=== PATIENT | male | born 1945 | race Caucasian/White ===

== ENCOUNTER 2023-09-22 10:33 | Emergency (ER) | payer OTHER, MEDICARE, SELFPAY ==
[2023-09-22 10:53] VITALS: BP 110/57
[2023-09-22 11:02] VITALS: BP 121/67
[2023-09-22 11:57] LABS: % Basophils 0.5 % (0-2); % Eosinophils 0.7 % (0-6); % Immature Granulocytes 0.2 % (0-0.5); % Lymphocytes 36.8 % (20.5-51.1); % Neutrophils 54.8 % (42.2-75.2); Absolute Eosinophils 0.1 10^3/uL (0-0.7); Absolute Lymphocytes 3.1 10^3/uL (1.2-3.4); Absolute Monocytes 0.6 10^3/uL (0.1-0.6); Absolute Neutrophils 4.6 10^3/uL (1.4-6.5); Hematocrit 36.8 % (39.0-52.0); Hemoglobin 12.2 g/dL (13.0-18.0); Mean Corp Hgb Conc. 33.2 g/dL (33.0-37.0); Mean Corpuscular Hgb 32.9 pg (27.0-31.0); Mean Corpuscular Volume 99.2 fL (80.0-94.0); Mean Platelet Volume 11.4 fL (7.4-10.4); Nucleated Red Blood Cells % 0 % (-); Platelet Count 179 10^3/uL (130-400); Red Blood Cell Count 3.71 10^6/uL (4.70-6.10); Red Cell Dist. Width 13.4 % (11.5-14.5); White Blood Cell Count 8.4 10^3/uL (4.8-10.8)
[2023-09-22 12:05] LABS: INR 1.09; PT 13.9 Sec (11.4-14.6)
[2023-09-22 12:06] LABS: APTT 25.2 Sec (23.4-35.0)
[2023-09-22 12:18] LABS: ALT (SGPT) 15 U/L (0-50); AST (SGOT) 24 U/L (17-59); Albumin 4.4 g/dl (3.5-5.0); Alkaline Phosphatase 52 U/L (38-126); Blood Urea Nitrogen 26 mg/dl (9-20); Carbon Dioxide 24 mmol/L (22-30); Chloride 108 mmol/L (98-107); Glucose 111 mg/dl (70-99); Potassium 4.7 mmol/L (3.5-5.1); Sodium 139 mmol/L (135-145); Total Bilirubin 0.6 mg/dl (0.2-1.3); Total Protein 7.5 g/dl (6.3-8.2); eGFR > 60.00
--- NOTE | 2023-09-22 12:24 | ED.GENMED ---
History of Present Illness
General
Chief Complaint: Skin Problem
Source: patient
Time Seen by Provider: 09/22/23 11:36
Travel History
Have you had any contact with someone who has COVID-19?: No
Do you have any symptoms of coronavirus? Fever > 100 degrees, chills, cough, shortness of breath, sore throat, loss of taste or smell, muscle aches, or headache?: No
History of Present Illness
History of Present Illness:
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
separate lacerations around the right eyelid/eyebrow. Patient also sustained multiple abrasions to his bilateral hands and left knee. Patient takes Plavix due to his cardiac history as well as previous CVA in 2018. He denies any loss of
consciousness, headache, vomiting or any other concerns. He is unsure of his last tetanus.
Past History
Past History
ED Past Medical History: CAD, CVA, HTN, Hypercholesterolemia and [place]
ED Past Surgical History: Cardiac (Angioplasty, STent, CABG)
Social History
Tobacco: Former smoker
Alcohol: None
Drug: None
Personal:
Living: with family
Employment: Retired
Family History
Family History: Other
Review of Systems
Review of Systems
All Other Systems: ROS reviewed and negative except as documented in HPI and ROS
Phy Exam
Physical Exam
Physical Exam:
GENERAL: Alert , in no apparent distress
EYE: conjunctiva clear
Head: 2 separate lacerations around the right eyebrow. There is a 2-1/2 cm full-thickness laceration with in the right eyebrow. No active bleeding. Lateral to this there is a superficial 1 cm laceration with no active bleeding
NECK: Supple, no midline tenderness
ENT: mmm.
LUNGS: no acute respiratory distress
NEUROLOGICAL: Alert and oriented
SKIN: Warm and dry, multiple separate small abrasions to the bilateral hands and anterior left knee
MUSCULOSKELETAL: well perfused. Moves all extremities without difficulty
PSYCH: Normal and appropriate interaction.
Scores
Heart Failure Risk
Heart Failure Risk Score: Not Applicable
Heart Score for Chest Pain Patients
STEMI patient?: Not applicable
Withdrawal Assessment of Alcohol
Withdrawal Assessment Completed?: Not applicable
Course
Orders/Labs/Results
Orders:
Orders
09/22/23 11:00
CT Head W/o Iv Contrast Urgent
Comment:
Reason For Exam: fall
09/22/23 11:41
Complete Blood Count/With Diff Urgent
Comprehensive Metabolic Panel Urgent
Protime/PTT Urgent
09/22/23 11:53
Tetanus/Diphth/Acelpertussis [Adacel] 0.5 ml IM .ONCE ONE
Abnormal Lab Results
09/22/23
11:41
RBC 3.71 L 10^6/uL
(4.70-6.10)
Hgb 12.2 L g/dL
(13.0-18.0)
Hct 36.8 L %
(39.0-52.0)
MCV 99.2 H fL
(80.0-94.0)
MCH 32.9 H pg
(27.0-31.0)
MPV 11.4 H fL
(7.4-10.4)
Chloride 108 H mmol/L
(98-107)
BUN 26 H mg/dl
(9-20)
Glucose 111 H mg/dl
(70-99)
09/22/23 11:41
09/22/23 11:41
Vital Signs
Initial and Last Documented VS:
Initial Vital Signs
Temp Pulse Resp BP Pulse Ox
98.1 F 59 18 110/57 97
09/22/23 10:53 09/22/23 10:53 09/22/23 10:53 09/22/23 10:53 09/22/23 10:53
Last Documented Vital Signs
Temp Pulse Resp BP Pulse Ox
98.1 F 76 24 121/67 98
09/22/23 10:53 09/22/23 11:02 09/22/23 11:02 09/22/23 11:02 09/22/23 11:02
Procedures
Laceration Closure
Right Eye brow:
Status of Wound: clean
Size of Wound in cm: 2.5
Description of Wound Edges: sharp and surrounded by abrasion
Preparation: cleaned with saline
Anesthesia: 1% Lidocaine with epi
Revision/Debridement: routine- no revision
Type of Closure: layered closure
Skin Closure Material: 6-0 nylon (13) and other (6-0 plain gut)
Number of sutures: 8
Right Lateral Eye brow:
Status of Wound: clean
Size of Wound in cm: 1
Description of Wound Edges: sharp
Preparation: cleaned with saline
Anesthesia: 1% Lidocaine with epi
Type of Closure: single layer closure
Skin Closure Material: 6-0 nylon
Number of sutures: 5
MDM/Problems Addressed
Differential Diagnosis Includes:
Accidental trip and fall, simple lacerations/abrasions intracranial bleeding, calvarial fracture
MDM/Problems Addressed:
77-year-old male presenting to the emergency department for evaluation status post accidental trip and fall. Lacerations as noted above and repaired as above. CT of the head was ordered from triage due to patient's head injury combined with his
anticoagulated status. Suture removal in 5 to 7 days. Patient was advised on wound care. He is otherwise stable for discharge home and aware of return precautions.
*Radiology
Radiology exam reviewed: radiology read reviewed (No intracranial pathology)
*Pulse Oximetry
Patient hypoxic: no
*Critical Care Note
Total Time (30-74mins, 75-104mins- exclusive of procedures): Not Applicable
ED Attending Note
-
Portions of this chart may have been created with voice recognition software.� Occasional wrong word or��sound alike� substitutions may have occurred due to the inherent limitations of voice recognition software.
Discharge Plan
Departure
Patient Disposition: Home (Routine Discharge)
Date of Disposition: 09/22/23
Time of Disposition: 12:24
Patient with high blood pressure during this ER visit?: No
Discharge Problem:
Laceration of forehead, Accidental fall
Instructions: Laceration Repair With Stitches (DC)
Prescriptions:
No Action
aspirin 81 MG tablet,delayed release (DR/EC)
81 mg PO DAILY
clopidogrel 75 MG tablet
75 mg PO DAILY
sertraline 50 MG tablet
50 mg PO QPM
metoprolol succinate 50 MG tablet extended release 24 hr
50 mg PO BID
omega-3 fatty acids-fish oil 1 EACH capsule
2 ea PO BID
rosuvastatin [Crestor] 40 MG tablet
40 mg PO QPM
cetirizine 10 MG tablet
10 mg PO DAILY
multivitamin with folic acid [Tab-A-Tra] 1 TABLET tablet
1 tab PO DAILY
ranolazine 1,000 MG tablet extended release 12 hr
1,000 mg PO BID Qty: 60 0RF
Rx Instructions:
Increase Ranexa (ranolazine) to 1000 mg (two 500 mg capsules) twice a day
Entresto 49-51 mg Tablet
1 tab PO BID
Activity Restrictions/Additional Instructions:
Suture removal in 5-7 days
Interventions
Interventions:
*Risk Screen - Suicide Last Done: 09/22/23 10:53
*General Assessment Last Done: 09/22/23 10:53
*Neglect/Abuse Screening Last Done: 09/22/23 10:53
ED-Skin Assessment Last Done: 09/22/23 12:07
[2023-09-22] MEDS: ADACEL 0.5 ML IM (12:32)
== END 2023-09-22 13:04 | disposition home or self-care (01) ==
LOC: EMR 10:33
PROVIDERS: Physician Assistant Medical; EMERGENCY PHYSICIAN Emergency Medicine; FAMILY PHYSICIAN Internal Medicine
DX: S01.81XA Laceration without foreign body of other part of head, initial encounter (principal); S01.111A Laceration without foreign body of right eyelid and periocular area, initial encounter; W01.0XXA Fall on same level from slipping, tripping and stumbling without subsequent striking against object, initial encounter; Z87.891 Personal history of nicotine dependence; Z23 Encounter for immunization; Z79.01 Long term (current) use of anticoagulants; Z86.73 Personal history of transient ischemic attack (TIA), and cerebral infarction without residual deficits
CPT/HCPCS: 99284; 12051; 90471; 12011; 70450; 80053; 85025; 85610; 85730; 90715

== ENCOUNTER 2023-10-17 11:45 | Emergency (ER) | payer MEDICARE, OTHER, SELFPAY ==
[2023-10-17 11:47] VITALS: BP 116/83
--- NOTE | 2023-10-17 12:22 | ED.GENMED ---
History of Present Illness
<Susan Peña PA-C - Last Filed: 10/17/23 23:15>
General
Chief Complaint: Musculo-Skeletal Complaint
Source: patient
Exam Limitations: none
Time Seen by Provider: 10/17/23 12:03
Nursing documentation reviewed up to this point in time: agreed with
Travel History
Have you had any contact with someone who has COVID-19?: No
Do you have any symptoms of coronavirus? Fever > 100 degrees, chills, cough, shortness of breath, sore throat, loss of taste or smell, muscle aches, or headache?: No
History of Present Illness
History of Present Illness:
Patient is a 77-year-old male presenting following trip and fall yesterday while at the gym. He states he tripped over one of the weight machines landing on his knees. He did not hit his head or lose consciousness. Someone assisted him up.
Patient states that he has been able to bear weight on knee since yesterday but noticed some increased pain this morning while trying to get out of bed. He states pain is worse with flexion of his knee. He denies any numbness/tingling in left
lower leg.
Patient denies any other injury sustained in the fall. No neck pain, back pain, headache
Past History
<Susan Peña PA-C - Last Filed: 10/17/23 23:15>
Past History
ED Past Medical History: CAD, CVA, HTN, Hypercholesterolemia and [place]
ED Past Surgical History: Cardiac (Angioplasty, STent, CABG)
Social History
Tobacco: Former smoker
Alcohol: None
Drug: None
Personal:
Living: with family
Employment: Retired
Family History
Family History: Other
Phy Exam
<Susan Peña PA-C - Last Filed: 10/17/23 23:15>
Physical Exam
Physical Exam:
General: In no apparent distress, non-toxic
Vitals: Vital signs stable, afebrile
HEENT: Atraumatic, normocephalic; pupils equal round reactive to light bilaterally, protecting airway
Neck: appears supple, no cervical spine tenderness or midline spinal tenderness
CV: No evidence of cyanosis
Resp: No accessory muscle use
Abd: Non-distended
Extremities: No obvious deformity or swelling of left knee, some pain along lateral joint line of left knee with active and passive knee flexion, no bony tenderness; no pain in left hip or left ankle, full range of motion in left hip and left ankle;
left lower extremity neurovascular intact
Neuro: alert and oriented x 3; grossly intact
Psych: Normal affect
Skin: Intact, small ecchymosis of left knee and healing wound
Course
<Susan Peña PA-C - Last Filed: 10/17/23 23:15>
Orders/Labs/Results
Orders:
Orders
10/17/23 12:18
Knee, Left 4 or More Views [CR Knee - Left 4 Or More View*] Urgent
Comment:
Reason For Exam: fall, left knee pain
Vital Signs
Initial and Last Documented VS:
Initial Vital Signs
Temp Pulse Resp BP Pulse Ox
97.3 F 60 18 116/83 100
10/17/23 11:47 10/17/23 11:47 10/17/23 11:47 10/17/23 11:47 10/17/23 11:47
Last Documented Vital Signs
Temp Pulse Resp BP Pulse Ox
97.3 F 58 18 98/53 100
10/17/23 11:47 10/17/23 15:07 10/17/23 11:47 10/17/23 15:07 10/17/23 15:07
<Lokesh Perez DO - Last Filed: 10/17/23 15:33>
Orders/Labs/Results
Orders:
Orders
10/17/23 12:18
Knee, Left 4 or More Views [CR Knee - Left 4 Or More View*] Urgent
Comment:
Reason For Exam: fall, left knee pain
Vital Signs
Initial and Last Documented VS:
Initial Vital Signs
Temp Pulse Resp BP Pulse Ox
97.3 F 60 18 116/83 100
10/17/23 11:47 10/17/23 11:47 10/17/23 11:47 10/17/23 11:47 10/17/23 11:47
Last Documented Vital Signs
Temp Pulse Resp BP Pulse Ox
97.3 F 58 18 98/53 100
10/17/23 11:47 10/17/23 15:07 10/17/23 11:47 10/17/23 15:07 10/17/23 15:07
<Susan Peña PA-C - Last Filed: 10/17/23 23:15>
MDM/Problems Addressed
Differential Diagnosis Includes:
Knee sprain, knee contusion, doubt knee fracture or dislocation, ruptured Dean's cyst
MDM/Problems Addressed:
Patient is a 77-year-old male presenting for evaluation of left knee injury sustained during trip and fall at the gym yesterday. Came down landing on his left knee. He is having pain with flexion of left knee, but is able to weight-bear. No other
injury sustained during fall. Vital signs are stable. Physical exam as documented above. He is no obvious swelling or deformity of left knee but does have some pain along lateral joint line with flexion of left knee. He has no pain in left ankle
or left hip with full range of motion. No suspicious for left knee sprain. Will check x-ray of left knee. Anticipate discharge. Patient declines any analgesia at this time.
Xray shows no acute fracture of dislocation. Suspect likely knee sprain. Patient declines knee immobilizer. Will wrap with ADAN bandage. Patient without difficulty ambulating. Return precautions discussed. Orthopedic referral provided if symptoms
persist/worsen. Patient expresses understanding.
Chronic conditions affecting care:
Hypertension
Acute Exacerbation and/or Progression of Chronic Illness:
N/A
<Susan Peña PA-C - Last Filed: 10/17/23 23:15>
*Radiology
Radiology exam reviewed: preliminary read by ED provider and radiology read reviewed
*Pulse Oximetry
Patient hypoxic: no
*EKG
Interpreted by ED Provider?: NA
*Trailer Driver Interpretation
Rate: Trailer Driver- N/A
*Critical Care Note
Total Time (30-74mins, 75-104mins- exclusive of procedures): Not Applicable
ED Attending Note
<Susan Peña PA-C - Last Filed: 10/17/23 23:15>
-
Portions of this chart may have been created with voice recognition software.� Occasional wrong word or��sound alike� substitutions may have occurred due to the inherent limitations of voice recognition software.
<Lokesh Perez, DO - Last Filed: 10/17/23 15:33>
ED Attending Note
Patient seen and examined by attending physician: Yes
I performed a history and physical exam of patient and discussed management with resident, I reviewed resident's note and agree with documented findings and plan of care.: Yes
ED Attending Note:
I have reviewed and agree with history and treatment plan by Susan Peña. My exam revealed 77-year-old male with full range of motion in left hip and ankle, pain with knee flexion. Normal pulses. Stable for discharge. Follow-up with primary
care
Discharge Plan
Departure
Patient Disposition: Home (Routine Discharge)
Date of Disposition: 10/17/23
Time of Disposition: 14:53
Patient with high blood pressure during this ER visit?: No
Condition: Good
Covid-19: Not Applicable
Discharge Problem:
Injury of knee, left
Instructions: Knee Sprain (DC)
Prescriptions:
No Action
aspirin 81 MG tablet,delayed release (DR/EC)
81 mg PO DAILY
clopidogrel 75 MG tablet
75 mg PO DAILY
sertraline 50 MG tablet
50 mg PO QPM
metoprolol succinate 50 MG tablet extended release 24 hr
50 mg PO BID
omega-3 fatty acids-fish oil 1 EACH capsule
2 ea PO BID
rosuvastatin [Crestor] 40 MG tablet
40 mg PO QPM
cetirizine 10 MG tablet
10 mg PO DAILY
multivitamin with folic acid [Tab-A-Tra] 1 TABLET tablet
1 tab PO DAILY
ranolazine 1,000 MG tablet extended release 12 hr
1,000 mg PO BID Qty: 60 0RF
Rx Instructions:
Increase Ranexa (ranolazine) to 1000 mg (two 500 mg capsules) twice a day
Entresto 49-51 mg Tablet
1 tab PO BID
Referrals:
Maryuri Santana MD [Family Provider] -
Iván Samuel MD [Active] - As needed
Activity Restrictions/Additional Instructions:
- Return to the emergency department any severe pain in the left knee, severe swelling in left knee, numbness or tingling in left lower leg, inability to ambulate, worsening in current symptoms, or any other concerns
-You can take Tylenol as needed for discomfort. Apply ice, wrap knee and Adan bandage.
-You should follow-up with orthopedics for further evaluation/management if symptoms persist. Further imaging may be required if symptoms persist/worsen
Interventions
Interventions:
*Risk Screen - Suicide Last Done: 10/17/23 15:08
*General Assessment Last Done: 10/17/23 15:08
*Neglect/Abuse Screening Last Done: 10/17/23 15:08
ED- Fall Risk Assessment Last Done: 10/17/23 15:08
*ED COVID-19 Vaccine History Last Done: 10/17/23 15:08
*Nursing Disposition Last Done: 10/17/23 15:08
ED-Musculoskeletal Assessment Last Done: 10/17/23 13:00
Discharge Date and Time
Discharge Date/Time: 10/17/23 15:08
[2023-10-17 15:07] VITALS: BP 98/53
== END 2023-10-17 15:08 | disposition home or self-care (01) ==
LOC: EMR 11:45
PROVIDERS: EMERGENCY PHYSICIAN Emergency Medicine; FAMILY PHYSICIAN Internal Medicine
DX: S80.912A Unspecified superficial injury of left knee, initial encounter (principal); W01.0XXA Fall on same level from slipping, tripping and stumbling without subsequent striking against object, initial encounter; I10 Essential (primary) hypertension; Z87.891 Personal history of nicotine dependence
CPT/HCPCS: 99283; 73564

== ENCOUNTER 2024-11-20 06:26 | Day surgery (SDC) | payer MEDICARE, OTHER, SELFPAY | END 2024-11-20 12:59 | disposition home or self-care (01) | LOC: GI 06:26 | PROVIDERS: ATTENDING PHYSICIAN Internal Medicine Gastroenterology | DX: Z12.11 Encounter for screening for malignant neoplasm of colon (principal); K64.8 Other hemorrhoids; K57.30 Diverticulosis of large intestine without perforation or abscess without bleeding; K31.89 Other diseases of stomach and duodenum; K57.10 Diverticulosis of small intestine without perforation or abscess without bleeding; R12 Heartburn; D12.2 Benign neoplasm of ascending colon; D12.8 Benign neoplasm of rectum; K29.50 Unspecified chronic gastritis without bleeding | CPT/HCPCS: 45380; 43239; 88305; 88342 ==

== ENCOUNTER 2025-05-09 15:12 | Inpatient (IN) | payer MEDICARE, OTHER, SELFPAY ==
[2025-05-07 20:02] VITALS: BP 109/54
[2025-05-07 20:06] VITALS: BP 109/54
[2025-05-07 20:06] LABS: Glucose - Point of Care 88 mg/dl (70-99)
--- NOTE | 2025-05-07 20:07 | ED.CVA ---
History of Present Illness
General
Chief Complaint: CVA/TIA Symptoms
Source: spouse and ambulance crew
Exam Limitations: non verbal-adult
Time Seen by Provider: 05/07/25 19:59
Nursing documentation reviewed up to this point in time: agreed with
Onset of Stroke Symptoms
Onset of symptoms known: Yes
Date of onset of symptoms: 05/07/25
Time pt last seen normal is known: Yes
Date last time pt seen normal: 05/07/25
Time last time pt seen normal: 14:00
History of Present Illness
History of Present Illness:
79-year-old male prehospital stroke alert last seen normal at 2 PM when he went to take a nap woke up around 8 PM aphasic with right sided neglect EMS called, prehospital stroke alert was alerted, of note patient has baseline no neurologic deficit
per EMS, patient had recent eyelid surgery has somewhat fresh looking stitches--blood pressure was marginally low per EMS
9 PM update discussed with at bedside she confirmed last seen normal at 2 PM today also looks like his aspirin and Plavix have been on held since 04/28 when he had eyelid surgery
Past History
Past History
ED Past Medical History: CAD, CVA, HTN, Hypercholesterolemia and [place]
ED Past Surgical History: Cardiac (Angioplasty, STent, CABG)
Social History
Tobacco: Former smoker
Alcohol: None
Drug: None
Personal:
Living: with family
Employment: Retired
Family History
Family History: Other
Phy Exam
Physical Exam
Physical Exam:
Physical Exam
General: Aphasic male looking to the left right sided neglect
Neck: No tongue bite sutures in the eyelids
Heart: Regular
Lungs: no acute respiratory distress. clear bilaterally
Abdomen: Soft
Neuro: Follows commands right sided neglect aphasic
Skin: no rash
Psychiatric: Unable to fully assess
Extremities:
Scores
NIH Stroke Score
Level of Consciousness: 0 - Alert
LOC Questions: 2-Neither correct
LOC Commands: 1-Performs one correctly
Best Horizontal Gaze: 2-Total gaze palsy
Visual Paulino: 2=Full hemianopia
Facial Palsy: 0=Normal, symmetrical
Motor - Right Arm: 1=Drift < 10 seconds
Motor - Left Arm: 0=No drift 10 seconds
Motor - Right Le-Drift < 5 seconds
Motor - Left Le-No drift 5 seconds
Limb Ataxia: 1-Present in one limb
Sensation: 1-Mild loss
Best Language: 3-Mute/global aphasia
Dysarthria: 2-Severe slurring
Extinction and Inattention: 1-Sensory inattention
NIH Total Score:: 17
Course
Orders/Labs/Results
Orders:
Orders
05/07/25 20:00
Electrocardiogram (*1) Stat
Reason for Study: Other
Other Reason for Exam: neuro symptoms
CT BRAIN PERF STROKE ALERT Urgent
Comment:
Reason For Exam: aphaisa
CT HEAD STROKE ALERT W/o Cont Urgent
Comment:
Reason For Exam: apahias
CT HEAD/NECK ANG STROKE ALERT Urgent
Comment:
Reason For Exam: aphasia
Bedside Glucose- Treatment ONCE
Cardiac Monitoring- Treatment ONCE
EKG- Treatment ONCE
05/07/25 20:31
Complete Blood Count/With Diff Urgent
Comprehensive Metabolic Panel Urgent
Erythrocyte Sed Rate Urgent
PTT Urgent
Prothrombin Time Urgent
05/07/25 21:36
Aspirin 300 mg RECTAL NOW STA
05/07/25 21:37
NSS 1000mL Bolus WIDE OPEN 0.9% Sodium Chloride 1000 ml [Nss] 1,000 ml IV BOLUS
Abnormal Lab Results
05/07/25
20:31
RBC 3.47 L 10^6/uL
(4.70-6.10)
Hgb 11.3 L g/dL
(13.0-18.0)
Hct 34.3 L %
(39.0-52.0)
MCV 98.8 H fL
(80.0-94.0)
MCH 32.6 H pg
(27.0-31.0)
MCHC 32.9 L g/dL
(33.0-37.0)
MPV 11.4 H fL
(7.4-10.4)
Potassium 5.2 H mmol/L
(3.5-5.1)
Chloride 108 H mmol/L
(98-107)
BUN 34 H mg/dl
(9-20)
Glucose 104 H mg/dl
(70-99)
Alkaline Phosphatase 33 L U/L
(38-126)
05/07/25 20:31
05/07/25 20:31
Vital Signs
Initial and Last Documented VS:
Initial Vital Signs
Pulse Resp BP
77 27 109/54
05/07/25 20:02 05/07/25 20:02 05/07/25 20:02
Last Documented Vital Signs
Temp Pulse Resp BP Pulse Ox
97.8 F 60 22 99/59 99
05/07/25 20:06 05/07/25 21:30 05/07/25 21:30 05/07/25 21:00 05/07/25 21:30
MDM/Problems Addressed
Differential Diagnosis Includes:
Intracerebral hemorrhage, ischemic stroke embolic stroke seizure with Alec's paralysis
MDM/Problems Addressed:
Aphasia right sided
*Pulse Oximetry
SaO2: 99
Oxygen Mode of Delivery: Room air
Patient hypoxic: no
*EKG
Interpreted by ED Provider?: Yes
Interpretation: abnormal
Comparison EKG: no comparison EKG present
Heart Rate: 78
Rate: normal
Rhythm: ventricular paced
Ischemia: non-specific ST changes
*Hand Mica Plate Layer Interpretation
Rate: normal
Interpretation: normal
Heart Rate: 78
Rhythm: ventricular paced
*Critical Care Note
Total Time (30-74mins, 75-104mins- exclusive of procedures): 30
Update Note
Update Note:
8:25 PM message from radiology noncontrast CT nothing acute
CT perfusion report noted CT angiogram completed awaiting results will consult urgently with [facility] remotely
8:45 PM reviewed with stroke fellow at [facility], case reviewed, she will review images, in the meantime I did review CT angio report here
In conclusion, does not appear to be TNK candidate due to timing greater than 4-1/2 hours, no large vessel occlusion, therefore not IAT candidate
935, reviewed again with the stroke fellow, she recommends aspirin not Plavix at this point and some fluids attempt to normalize his blood pressure as tolerated
ED Attending Note
-
Portions of this chart may have been created with voice recognition software.� Occasional wrong word or��sound alike� substitutions may have occurred due to the inherent limitations of voice recognition software.
Discharge Plan
Departure
Patient Disposition: Admit
Date of Disposition: 05/07/25
Time of Disposition: 21:05
Admit to: Telemetry
Presentation/result/management discussed w/ accepting MD/DO: Hospitalist
Patient with high blood pressure during this ER visit?: No
Condition: Fair
Covid-19: Not Applicable
Discharge Problem:
Acute CVA (cerebrovascular accident)
Prescriptions:
No Action
aspirin 81 MG tablet,delayed release (DR/EC)
81 mg PO DAILY
clopidogrel 75 MG tablet
75 mg PO DAILY
sertraline 50 MG tablet
50 mg PO QPM
metoprolol succinate 50 MG tablet extended release 24 hr
75 mg PO BID
rosuvastatin [Crestor] 40 MG tablet
40 mg PO QPM
cetirizine 10 MG tablet
10 mg PO DAILY
multivitamin with folic acid [Tab-A-Tra] 1 TABLET tablet
1 tab PO DAILY
ranolazine 1,000 MG tablet extended release 12 hr
1,000 mg PO BID Qty: 60 0RF
Rx Instructions:
Increase Ranexa (ranolazine) to 1000 mg (two 500 mg capsules) twice a day
sacubitril-valsartan [Entresto] 49-51 mg Tablet
1 tab PO BID
pantoprazole [Protonix] 40 mg Tablet,Delayed Release (Dr/Ec)
40 mg PO DAILY
erythromycin 5 mg/gram (0.5 %) Ointment
1 applic BOTH EYES BID
Rx Instructions:
FOR 10 DAYS AFTER EYE LID SURGERY
ezetimibe [Zetia] 10 mg Tablet
10 mg PO DAILY
omega-3 acid ethyl esters 1 gram capsule
2 g PO BID
fenofibrate nanocrystallized [Tricor] 145 mg Tablet
145 mg PO DAILY
Interventions
Interventions:
*Risk Screen - Suicide Last Done: 05/07/25 20:11
*General Assessment Last Done: 05/07/25 20:11
*Neglect/Abuse Screening Last Done: 05/07/25 20:11
*ED- Fall Risk Assessment Last Done: 05/07/25 20:11
*ED COVID-19 Vaccine History Last Done: 05/07/25 20:11
*ED Influenza Vaccine History Last Done: 05/07/25 20:11
ED- Pulmonary Assessment Last Done: 05/07/25 20:12
ED- Neurological Assessment Last Done: 05/07/25 20:12
ED- Cardiac Assessment Last Done: 05/07/25 20:12
Discharge Date and Time
Print Language: LATVIAN
[2025-05-07 20:08] VITALS: BMI 28.6
--- NOTE | 2025-05-07 20:13 | PHANOTE ---
Addendum entered by Enma Smith 05/07/25 21:27:
patient spouse arrived but bought her medication list with her and an old list of his, no ecw, patient non verbal at this time. no pharmacy fills for Entresto and list has 25mg?
Original Note:
med red note- called spouse to get medication list, patient came with medication list but wrong name on paperwork
[2025-05-07 20:35] VITALS: BP 99/53
[2025-05-07 20:38] LABS: Hematocrit 34.3 % (39.0-52.0); Hemoglobin 11.3 g/dL (13.0-18.0); Mean Corp Hgb Conc. 32.9 g/dL (33.0-37.0); Mean Corpuscular Volume 98.8 fL (80.0-94.0); Nucleated Red Blood Cells % 0 % (-); Platelet Count 190 10^3/uL (130-400); Red Cell Dist. Width 12.9 % (11.5-14.5)
[2025-05-07 20:47] LABS: INR 1.08; PT 14.5 Sec (11.4-14.6)
[2025-05-07 20:48] LABS: APTT 24.6 Sec (23.4-35.0)
[2025-05-07 20:59] LABS: ALT (SGPT) 15 U/L (0-50); AST (SGOT) 24 U/L (17-59); Albumin 4.2 g/dl (3.5-5.0); Alkaline Phosphatase 33 U/L (38-126); Blood Urea Nitrogen 34 mg/dl (9-20); Calcium 9.2 mg/dl (8.4-10.2); Carbon Dioxide 24 mmol/L (22-30); Chloride 108 mmol/L (98-107); Estimated Creatinine Clearance 61 ml/min; Glucose 104 mg/dl (70-99); Potassium 5.2 mmol/L (3.5-5.1); Sodium 138 mmol/L (135-145); Total Protein 7.1 g/dl (6.3-8.2); eGFR > 60.00
[2025-05-07 21:00] VITALS: BP 99/59
--- NOTE | 2025-05-07 21:06 | HPS.HSE ---
Family Physician
-
Family Physician:
Chief Complaint
-
aphasia and right sided neglect
History of Present Illness
Patient is a 79-year-old male with past medical history significant for hypertension, hyperlipidemia, CAD and ischemic cardiomyopathy who presented to [facility] ED for evaluation aphasia and right sided neglect. Patient spouse at bedside who assisted
with HPI. Patient laid down for nap around 1400 and was at baseline patients spouse states that she also took a nap and when she woke she went to see if patient was hungry and when she questioned him she learned he was unable to answer questions,
had garbled speech and kept repeating 'I do not know.' She reports calling [id number] who instructed her to call 911. Patient had recent hooded eyelid repair done last 05/01/2025. She is unaware if patient has been taking his precribed
medications or not.
Medical History
Past Medical History
Past Medical History: Reports Other
Additional Past Medical History:
hypertension
hyperlipidemia
CAD
ischemic cardiomyopathy
Hx NSTEMI
Hx embolic CVA
Past Surgical History: Reports Other
Additional Past Surgical History:
CABG
hooded eyelid repair
Social History
Tobacco: Former Smoker
Personal:
Living: With Family
Family History
Family History: Unable to Obtain
Allergies / Home Medications
Allergies reflects when Allergies were last updated in [facility].
Home Medications with original date entered in [facility]
Allergy/Medication List:
Allergies
Allergy/AdvReac Type Severity Reaction Status Date / Time
No Known Allergies Allergy Verified 09/22/23 10:53
Home Medications
aspirin 81 mg tablet,delayed release 81 mg PO DAILY Blood clot prevention/tx 06/06/17
clopidogrel 75 mg tablet 75 mg PO DAILY Blood clot prevention/tx 06/06/17
sertraline 50 mg tablet 50 mg PO QPM Mental Health/Anxiety 06/06/17
cetirizine 10 mg tablet 10 mg PO DAILY Allergies 06/10/20
metoprolol succinate 50 mg tablet,extended release 24 hr 75 mg PO BID Heart Failure 06/10/20
multivitamin with folic acid 400 mcg tablet (Tab-A-Tra) 1 tab PO DAILY Supplement 06/10/20
rosuvastatin 40 mg tablet (Crestor) 40 mg PO QPM High cholesterol 06/10/20
ranolazine 1,000 mg tablet,extended release,12 hr 1,000 mg PO BID ##60 06/11/20
sacubitril 49 mg-valsartan 51 mg tablet (Entresto) 1 tab PO BID 09/22/23
erythromycin 5 mg/gram (0.5 %) eye ointment 1 applic BOTH EYES BID 05/07/25
ezetimibe 10 mg tablet (Zetia) 10 mg PO DAILY 05/07/25
fenofibrate nanocrystallized 145 mg tablet (Tricor) 145 mg PO DAILY 05/07/25
omega-3 acid ethyl esters 1 gram capsule 2 g PO BID 05/07/25
pantoprazole 40 mg tablet,delayed release (Protonix) 40 mg PO DAILY 05/07/25
Review of Systems
-
Unable to obtain full review of systems at this time due to: Other (unable to obtain complete history )
History Source: Patient and Family
Neurological: Reports Other (right sided neglect, aphasic )
Physical Exam
Vital Signs
Vital Signs
Temp Pulse Resp BP Pulse Ox
97.8 F 74 16 109/54 99
05/07/25 20:06 05/07/25 20:06 05/07/25 20:06 05/07/25 20:06 05/07/25 21:05
Physical Exam
General: Well Developed, Well Nourished, No Apparent Distress, Comfortable and Slurred Speech
HEENT: NormoCephalic, Moist mucous membranes, Nose Appears Normal, Ears Appear Normal and Other (B/L eyelids healing from surgery last 05/01/2025)
Respiratory: Clear and Non Labored Respirations
Cardiac: S1/S2 and Regular Rhythm; No Murmur, Rub or Gallop
GI: Soft, Non Tender, Non Distended and Normal Bowel Sounds
Musculoskeletal: No Clubbing, No Cyanosis and No Edema
Skin: Warm and IV/Catheter Site
Neuro: Awake, Alert, Slurred Speech, Facial Droop (right sided ) and Other (aphasic )
Psych: Calm
Laboratory Results
-
05/07/25 20:
05/07/25
Laboratory Results
PT 14.5 Sec (11.4-14.6) 05/07/25
INR 1.08 05/07/25
APTT 24.6 Sec (23.4-35.0) 05/07/25
Total Bilirubin 0.8 mg/dl (0.2-1.3) 05/07/25:
AST 24 U/L (17-59) 05/07/25:
ALT 15 U/L (0-50) 05/07/25:
Alkaline Phosphatase 33 U/L (38-126) L 05/07/25
Data Reviewed
-
CT Scan: Report Reviewed by me (see reports )
Medical Tests (Nuc Med, Echo, EKG etc): Report Reviewed by me (EKG: AV dual-paced rhythm WITH FREQUENT ventricular-paced complexes)
Lab Data: Labs Reviewed by me (hgb 11.3, hct 34.3, K+ 5.2)
Impression/Plan
-
IMPRESSION/PLAN:
#aphasic and right sided neglect
#Hx embolic CVA
Head/Neck CTA: No evidence for hemodynamically significant stenosis of the common carotid arteries, carotid bulbs, or proximal internal carotid arteries bilaterally.
No evidence for large vessel occlusion within the middle cerebral arteries bilaterally. Subtle slightly diminished distal branches in the left anterior frontal lobe when compared to the right,
corresponding to the region of delayed perfusion on CT brain perfusion examination.
For further evaluation, consideration for MRI of the brain.
No significant narrowing involving the vertebral or basilar arteries. No significant narrowing of the posterior cerebral arteries.
Percent stenosis is calculated using NASCET criteria.
If the patient has emphysema, patient should be assessed for an annual low dose lung cancer CT program, as pulmonary emphysema is an independent risk factor for lung cancer.
Head CT: No evidence of acute intracranial abnormality.
ASPECT score: 10
Brain perf stroke alert: By CT brain perfusion, ischemic penumbra is present in the left frontal lobe and in the region of the insula. This distribution could result in clinical symptoms of aphasia. By CT brain
perfusion, no evidence for core infarction.
EKG: AV dual-paced rhythm WITH FREQUENT ventricular-paced complexes
- Admit to telemetry
- Consult Neurology
- NIH and neuro checks per protocol
- lipids
#hypertension
- continue metoprolol
#hyperlipidemia
- hold ezetimibe and fenofibrate
#CAD
- continue aspirin
#ischemic cardiomyopathy
#Hx NSTEMI
- daily weights
- I & Os
- continue aspirin
- hold ranolazine
Code status: full code
DVT prophylaxis: SCDs
[2025-05-07] MEDS: NSS 1000 IV (21:52)
[2025-05-07] MEDS: ASPIRIN 300 MG RECTAL (21:52)
--- NOTE | 2025-05-07 21:55 | W.PN.UPDATE ---
Update Note
Progress Note Update
Patient seen in conjunction with PRESS AND BLOW MACHINE TENDER. I agree with the findings physical. I concur with assessment and plan unless stated otherwise.
This is a 79-year-old with past medical history significant for CAD status post TX, prior history of cardioembolic stroke with residual visual field deficit, hypertension, hyperlipidemia, ischemic cardiomyopathy presenting to the emergency
department with acute episode of aphasia.
Patient apparently arose in usual state of health and was normal until around 2 PM when he went to take a nap. When he woke up he presented with aphasia. He also had some right-sided hemineglect according to the EMS that saw him first. Patient
had a recent eyelid surgery bilaterally and dual antiplatelet therapy with on hold. No particular facial asymmetry noted. Patient unable to provide much history due to his severe aphasia. Spouse who lives with him also cannot provide any
additional history. Apparently had this last stroke about 2 years ago.
In the emergency department his blood pressure was in the 90s systolic, temperature was 98,. CBC was unremarkable electrolytes BUN/creatinine were stable. Noncontrast CT was nonacute. CT brain perfusion with ischemic penumbra is present in the
left frontal lobe and in the region of the insula. This distribution could result in clinical symptoms of aphasia. By CT brain perfusion, no evidence for core infarction CT angio showed no evidence for hemodynamically significant stenosis of the
common carotid arteries, carotid bulbs, or proximal internal carotid arteries bilaterally.
NIHSS = 4, severe aphasia.
Assessment and plan
CVA -patient with new onset aphasia likely secondary to left-sided CVA. No focal stroke on CT scan blood penumbra with ischemia from likely small vessel disease. No large vessel occlusion on CT angio. Neurology evaluated. No TNK.
- Admit to telemetry for stroke evaluation
- N.p.o. for now, swallow evaluation
- Aspirin 300 mg loading ND
- Keep SBP greater than 120, with IV fluid, hold antihypertensives for now
- Will continue his aspirin daily, continue Plavix
- Continue metoprolol with hold parameters
- Hold Entresto holding
- MRI in a.m., echo
- Neurology consultation
- Check A1c and lipid panel
- DVT prophylaxis with Lovenox subcu
- CODE STATUS�full code
[2025-05-07 22:00] VITALS: BP 96/59
[2025-05-07 23:00] VITALS: BP 102/55
[2025-05-08] VITALS (8 sets, daily range): BP systolic 106–134; BP diastolic 53–69; O2SAT 99
[2025-05-08 02:47] LABS: Troponin I 0.048 ng/ml
[2025-05-08 03:44] LABS: Urine Character Clear (Clear)
[2025-05-08 03:50] LABS: Urine Red Blood Cell 0-2 /HPF (0-2); Urine Squamous Cell 0-2 /LPF (Few); Urine White Cell 0-2 /HPF (0-5)
[2025-05-08 08:37] LABS: HDL Cholesterol 48 mg/dl; LDL Cholesterol, Calculated 64 mg/dl; Very Low Density Lipoprotein 26 mg/dl (0-30)
[2025-05-08 08:42] LABS: Glycohemoglobin (HgbA1c) 5.7 % (4.0-5.6)
--- NOTE | 2025-05-08 08:49 | W.PN.HOSP.TC ---
Addendum entered and electronically signed by Sanford Fernandez MD 05/09/25 16:07:
I personally reviewed and evaluated this patient with the resident. I agree with above unless if otherwise stated below.
I personally reviewed labs and imaging financial consultant notes case management note
Addendum entered and electronically signed by Sanford Fernandez MD 05/08/25 13:12:
Acute CVA with new onset aphasia
MRI brain
2D echocardiogram
Telemetry
PT OT speech
DAPT, LDL less than 64 continue home Crestor Zetia per neurology
Elevated troponin likely related to acute CVA, trend to peak
Will check 2D echocardiogram to assess for wall motion abnormality and EF
Hyperkalemia
Holding Entresto
Repeat BMP
HFrEF
Compensated
Resume GDMT which includes beta-uriah Entresto
Read, reviewed, and agree. See same day progress note for additional details. Time spent reviewing records in EMR, med rec, consults, notes, d/w consultants, nursing, family, and CM
Original Note:
Today's Communication/Plan
-
Speech evaluation
MRI Brain
Echocardiography
Neurology and Cardiology consult
Assessment / Plan
Assessment / Plan
Patient is a 79-year-old male with past medical history significant for hypertension hyperlipidemia coronary artery disease, ischemic cardiomyopathy who presented to the [facility] ED for evaluation of aphasia and right-sided neglect. As per patient's
, yesterday afternoon when she woke up after a nap and went to ask her about food he was unable to answer the questions, had difficulty speaking and kept repeating I do not know. They called 911.
History of large stroke about 2 years ago
In the ED systolic blood pressure was in 90s, blood work was unremarkable.
CT brain did not show any acute changes, CT brain perfusion with ischemic penumbra in left frontal lobe and region of the insula
CT angio showed no evidence of significant stenosis of common carotid arteries, carotid bulb or internal carotid arteries
Patient with severe aphasia and unable to communicate appropriately but follows commands.
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
Neurology evaluated the patient, no TNK indicated
Keep n.p.o. until speech evaluation
Optimize blood pressure but avoid hypotension, antihypertensives on hold for now
EKG AV dual paced rhythm with frequent ventricular paced complexes
HbA1c 5.7
LDL 64, triglycerides 134, total cholesterol 138
Continue aspirin and Plavix
Continue metoprolol with holding parameters
Neurology consultation
Cardiology consultation
MRI brain
Echocardiogram
#hypertension
- continue metoprolol
#hyperlipidemia
- hold ezetimibe and fenofibrate
#CAD
- continue aspirin
-Resume medications as able
#ischemic cardiomyopathy
#Hyperkalemia
Repeat bmp
Hold Entresto
Code status: full code
DVT prophylaxis: SCDs
Anticipated Discharge: 24 - 48 hours
Subjective/Interval History
-
Date of Service: May 08, 2025
Patient seen and examined at bedside
Alert, follows commands, unable to communicate with proper sentences but utters words
Objective Data
-
Labs:
Laboratory Results
05/07/25
20:31
APTT 24.6
Sodium 138
Potassium 5.2 H
Chloride 108 H
Carbon Dioxide 24
BUN 34 H
Creatinine 1.1
Glucose 104 H
Calcium 9.2
Total Bilirubin 0.8
AST 24
ALT 15
Alkaline Phosphatase 33 L
Vital Signs:
Vital Signs
Temp Pulse Resp BP Pulse Ox
97.5 F 60 14 106/53 99
05/08/25 07:43 05/08/25 07:43 05/08/25 07:43 05/08/25 07:43 05/08/25 07:43
I&O
05/07/25 05/08/25 05/09/25
06:59 06:59 06:59
Output Total 300 / 300
Balance -300 / -300
Review of Systems
-
All other systems: Reviewed and negative
Physical Exam
-
General: Well Developed and Well Nourished
HEENT: Other (Scar thompson on eyelids from recent hooded eye repair)
Respiratory: Clear to Auscultation; Negative Wheezes, Rales or Rhonchi
Cardiac: Regular Rhythm and S1/S2; Negative Murmur, Rub or Gallop
GI: Soft, Nontender and Normal Bowel Sounds
Musculoskeletal: No Clubbing, No Cyanosis and No Edema
Skin: Warm and Dry
Neuro: Awake, Nonfocal/Grossly Intact (Normal tone, strength 5/5 in all limbs), Slurred Speech, Facial Droop (Right-sided?) and Other (Follows commands, unable to communicate due to aphasia, speaks words but mostly says I do not know)
[2025-05-08 09:17] LABS: Troponin I 0.053 ng/ml
--- NOTE | 2025-05-08 09:18 | CON.NEURO4 ---
Addendum entered and electronically signed by Joao Nolasco MD 05/08/25 13:19:
Studies reviewed.
I have personally examined the patient. I reviewed and agree with the WASHROOM CLEANER's Note.
My addenda:
Awake, alert, interactive. No acute distress.
Speech intact.
Follows 2-step requests w/o difficulty. No tremor.
Extra-ocular movements grossly intact.
Facial movements full and symmetric. Hearing intact to normal conversational volume.
Normal UE movements bilaterally.
Neck: full ROM.
Chest: no dyspnea
Heart: no JVD
Ext: (-) Clubbing, (-) Cyanosis, (-) Edema
IMPRESSIONS/RECOMMENDATIONS:
Abrupt onset of aphasia in a patient with discontinuance of aspirin and clopidogrel due to eyelid surgery.
CT perfusion performed yesterday, indicated a perfusion deficit without ischemic core.
Restart aspirin and clopidogrel routinely and lifelong when able to take by mouth
Goal of permissive hypertension until 2000 hours today then normotension
Continue rosuvastatin and Ezetimibe when able to take by mouth
Rehabilitation evaluations and treatment
D/W patient / nursing
All questions answered.
Will continue to follow pending results.
Original Note:
Documented by User: Anay Barfield NP 05/08/25 12:12
Consultation - Neurology 4
-
CONSULTING PHYSICIAN: Joao Nolasco MD
REFERRING PHYSICIAN: Hospitalists/ERNESTO Anderson
DICTATED BY: ERNESTO Forrest
DATE/TIME OF REQUEST: 05/07/25
DATE/TIME OF CONSULTATION: 05/08/25
Reason for Consultation: Stroke Alert
History of Present Illness:
This is a 79-year-old male who has presented to the hospital on 05/07/25 with report of aphasia and right-sided neglect. Patient was previously evaluated by our inpatient Neurology service in 2018 for right-sided field cut and ataxia, he received
tPA at that time. MRI brain 08/17/17 demonstrated a large left mesial occipital lobe ischemic infarct.
Patient recently underwent right eyelid repair on 05/01/25, his aspirin and clopidogrel (which he takes for cardiac purposes) have been held for this procedure since 04/28/25. Yesterday (05/07/25), his reports that he was at his baseline at 1400
when he went to take a nap. She woke him up around 2000 to see if he wanted dinner and reports that his speech was garbled and he was unable to answer her questions. EMS was called and activated a stroke alert. CT head and CTA head/neck were
obtained on arrival and were negative for any acute abnormalities. CT perfusion was obtained and demonstrated a large 28ml ischemic penumbra and 0ml core infarct. NIHSS was 17. Per Telestroke, patient was not a candidate for TNK due to being outside
of the time window. He was not a candidate for IAT due to no LVO. He was given full dose rectal aspirin in the ER. Today (05/08/25), patient continues to be globally aphasic and unable to participate in conversation.
Past Medical History: Large left mesial occipital ischemic stroke s/p tPA 2017, HTN, HLD, CAD, ischemic cardiomyopathy, NSTEMI
Surgical History: Cardiac cath, cardiac stent, CABG, hooded eyelid repair
Family History: Reviewed and noncontributory.
Social History: Former smoker. Occasional alcohol. No illicit drug use.
Allergies: No known allergies.
Home Medications: See below.
Review of Symptoms:
Patient denies any fever, headache, chest pain, shortness of breath, GI or symptoms.
�Per the HPI.�All systems are reviewed negative except above.
Physical Exam:
The patient is afebrile, abdomen is nondistended, breathing is unlabored, skin is warm and dry, no edema.
NIH Stroke Scale:
I performed the NIH stroke scale on the patient on 05/08/25 at 0930. The patient scored 8 points on the NIH stroke scale assessment, which were assigned as follows: See below.
Neurologic Examination:
The patient is awake and alert. Unable to answer orientation questions due to aphasia. He is able to follow/mimic some commands. There is severe aphasia expressive>receptive. Mild dysarthria. On cranial nerve assessment, pupils are 2 mm bilateral,
round and reactive to light and accommodation. TARA visual paulino. EOMs are full in all directions. There is mild right facial asymmetry. Hearing is intact bilaterally to normal conversation volume. Tongue palate and uvula are midline. Motor
strengths are 5/5 bilateral upper and lower extremities on medical research Spangler scale. There is no drift. There is a low amplitude semi rhythmic head tremor. Deep tendon reflexes are absent bilateral upper and lower extremities and Babinski is
absent bilaterally. TARA sensation, double simultaneous, and coordination due to aphasia.
Lab Results: See below.
Neuro Imaging:
1. CT Head 05/07/25: No evidence of acute intracranial abnormality. ASPECT score: 10.
2. CTA Head/Neck 05/07/25: No evidence for hemodynamically significant stenosis of the common carotid arteries, carotid bulbs, or proximal internal carotid arteries bilaterally. No evidence for large vessel occlusion within the middle cerebral
arteries bilaterally. Subtle slightly diminished distal branches in the left anterior frontal lobe when compared to the right, corresponding to the region of delayed perfusion on CT brain perfusion examination.
No significant narrowing involving the vertebral or basilar arteries. No significant narrowing of the posterior cerebral arteries.
3. CT brain perfusion 05/07/25: CBF <30% Volume: 0 mL (estimate of ischemic core). Tmax >6 second Volume: 28 mL (critically hypoperfused tissue). CBF/Tmax Mismatch Volume: 28 mL (ischemic penumbra).
Differentials for the patient's presentation include:
1. Acute L MCA territory ischemic stroke likely producing global aphasia; supported by large L MCA territory penumbra demonstrated on CT brain perfusion.
2. Cardiac stent; DAPT has been on hold in the setting of eyelid surgery on 05/01/25.
Patient has the following risk factors for their symptoms: Cardiac stent, DAPT on hold, age, hx stroke
IV Tenecteplase/IAT candidacy: Per Telestroke, patient was not a candidate for TNK due to being outside of the time window. He was not a candidate for IAT due to no LVO.
Recommendations:
-Once cleared by speech therapy, resume DAPT with aspirin 81mg and clopidogrel 75mg daily indefinitely.
-Permissive hypertension SBP<220, DBP<120 until 1999 today, then goal normotension.
-MRI brain noncontrast pending.
-LDL goal <70. LDL is 64. Continue home rosuvastatin 40mg and ezetimibe 10mg daily.
-Goal normoglycemia, hbA1c is 5.7.
-PT/OT/ST evaluations.
-NIHSS and neurological checks per unit guidelines.
-Provide patient's family with a stroke education packet.
-DVT prophylaxis.
Discussed patient care with: Dr. Nolasco, nursing staff, the patient
Vital Signs and Labs
-
Vital Signs and Labs:
Vital Signs
Temp Pulse Resp BP Pulse Ox
97.5 F 60 14 106/53 99
05/08/25 07:43 05/08/25 07:43 05/08/25 07:43 05/08/25 07:43 05/08/25 07:43
Lab Results
05/07/25 20:31
05/07/25 20:31
PT 14.5 Sec (11.4-14.6) 05/07/25 20:31
INR 1.08 05/07/25 20:31
APTT 24.6 Sec (23.4-35.0) 05/07/25 20:31
Sodium 138 mmol/L (135-145) 05/07/25 20:31
Potassium 5.2 mmol/L (3.5-5.1) H 05/07/25 20:31
BUN 34 mg/dl (9-20) H 05/07/25 20:31
Glucose 104 mg/dl (70-99) H 05/07/25 20:31
Calcium 9.2 mg/dl (8.4-10.2) 05/07/25 20:31
LDL Cholesterol, Calc 64 mg/dl 05/08/25 06:17
Medications
-
Active Medications
Generic Name Dose Route Start Last Admin
Trade Name Freq PRN Reason Stop Dose Admin
Acetaminophen 650 mg 05/07/25 23:33
Acetaminophen 650 Mg Rectal Suppository RECTAL 06/04/25 23:32
Q4HPRN PRN
LAMBERT, mild pain, or temp >100.4F
Acetaminophen 650 mg 05/07/25 23:33
Acetaminophen 325 Mg Tablet PO 06/04/25 23:32
Q4HPRN PRN
LAMBERT, mild pain, or temp >100.4F
Aspirin 81 mg 05/08/25 08:00 05/08/25 09:26
Aspirin 81 Mg (Enteric Coated) Tablet PO 06/05/25 07:59 Not Given
DAILY HANH
Clopidogrel Bisulfate 75 mg 05/08/25 08:00 05/08/25 09:26
Clopidogrel 75 Mg Tablet PO 06/05/25 07:59 Not Given
DAILY HANH
Erythromycin 1 applic 05/08/25 08:00 05/08/25 09:27
Erythromycin 0.5% (Ophthalmic Ointment) 1 Gram Tube BOTH EYES 05/18/25 07:59 1 applic
BID HANH Administration
Metoprolol Succinate 75 mg 05/08/25 08:00 05/08/25 09:26
Metoprolol 50 Mg Extended Release Tablet PO 06/05/25 07:59 Not Given
BID HANH
Home Medications
�Medication �Instructions �Recorded
aspirin 81 mg tablet,delayed 81 mg PO DAILY Blood clot 06/06/17
release prevention/tx
clopidogrel 75 mg tablet 75 mg PO DAILY Blood clot 06/06/17
prevention/tx
sertraline 50 mg tablet 50 mg PO QPM Mental Health/Anxiety 06/06/17
cetirizine 10 mg tablet 10 mg PO DAILY Allergies 06/10/20
metoprolol succinate 50 mg 75 mg PO BID Heart Failure 06/10/20
tablet,extended release 24 hr
multivitamin with folic acid 400 1 tab PO DAILY Supplement 06/10/20
mcg tablet (Tab-A-Tra)
rosuvastatin 40 mg tablet (Crestor) 40 mg PO QPM High cholesterol 06/10/20
ranolazine 1,000 mg 1,000 mg PO BID ##60 06/11/20
tablet,extended release,12 hr
sacubitril 49 mg-valsartan 51 mg 1 tab PO BID 09/22/23
tablet (Entresto)
erythromycin 5 mg/gram (0.5 %) eye 1 applic BOTH EYES BID 05/07/25
ointment
ezetimibe 10 mg tablet (Zetia) 10 mg PO DAILY 05/07/25
fenofibrate nanocrystallized 145 145 mg PO DAILY 05/07/25
mg tablet (Tricor)
omega-3 acid ethyl esters 1 gram 2 g PO BID 05/07/25
capsule
pantoprazole 40 mg tablet,delayed 40 mg PO DAILY 05/07/25
release (Protonix)
NIH Stroke Score
Subsequent NIH Scale
Date of Subsequent NIH Scale: 05/08/25
Time of Subsequent NIH Scale: 09:30
NIH Stroke Score
Level of Consciousness: 0 - Alert
LOC Questions: 2-Neither correct
LOC Commands: 2-Performs neither correctly (only follows commands to mimicking)
Best Horizontal Gaze: 0-Normal
Visual Paulino: 0=Normal, no visual loss
Facial Palsy: 1=Minor paralysis
Motor - Right Arm: 0=No drift 10 seconds
Motor - Left Arm: 0=No drift 10 seconds
Motor - Right Le-No drift 5 seconds
Motor - Left Le-No drift 5 seconds
Limb Ataxia: UN-Amputation/jointfusion
Sensation: 0-Normal
Best Language: 2-Severe aphasia
Dysarthria: 1-Mild slurring
Extinction and Inattention: 0-No abnormality
NIH Total Score:: 8
Modified [place] (mRS) Score
Modified [place] Scale (mRS): Moderate disability. Requires some help, able to walk unassisted.
Score: 3
Alteplase Contraindication
Inclusion and Exclusion criteria reviewed: Yes
Reasons for NON-Tx with Thrombolytics ABSOLUTE Exclusions: Greater than 4.5 hrs from onset of sxs
IAT Contraindications: Imaging doesn't show large vessel occlusion as cause of stroke

Documented by User: Joao Nolasco MD 05/08/25 13:11
NIH Stroke Score
NIH Stroke Score
NIH Total Score:: 8
Modified [place] (mRS) Score
Score: 3
[2025-05-08] MEDS: ASPIR LOW (ENTERIC COATED) PO (09:26)
[2025-05-08] MEDS: PLAVIX PO (09:26)
[2025-05-08] MEDS: ERYTHROMYCIN 0.5% OPHTHALMIC OINTMENT 1 APPLIC BOTH EYES ×2 (09:27→20:45)
[2025-05-08 10:31] LABS: Blood Urea Nitrogen 30 mg/dl (9-20); Calcium 9.0 mg/dl (8.4-10.2); Carbon Dioxide 22 mmol/L (22-30); Chloride 109 mmol/L (98-107); Estimated Creatinine Clearance 70 ml/min; Glucose 89 mg/dl (70-99); Potassium 4.4 mmol/L (3.5-5.1); Sodium 137 mmol/L (135-145); eGFR > 60.00
[2025-05-08] MEDS: ASPIR LOW (ENTERIC COATED) 81 MG PO (10:38)
[2025-05-08] MEDS: PLAVIX 75 MG PO (10:38)
--- NOTE | 2025-05-08 11:22 | PTOTSP ---
CIRCULAR SAW EDGE FUSER Evaluation
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
Patient could not consistently follow verbal commands or read written commands but could follow visual models. He could sometimes point to communicate with a picture board with field of 2 options when placed on his left side but this was
inconsistent. He could not write or copy a written model. He spontaneously gestured to request during evaluation.
Recommend referencing visuals as able and using gestures to provide communicate context. Trial communication board with field= 2 pictures at bedside presented on patient's left side.
Recommend:
1. Continued therapy at the acute care level
2. Inpatient rehabilitation appropriate. Needs speech therapy at the next level of care.
--- NOTE | 2025-05-08 11:29 | PTOTSP ---
Dysphagia Evaluation:
Given s/sx of aspiration observed during bedside swallow assessment (coughing w/ thin liquids, failing Inez 3 oz swallow), presentation of CVA/TIA symptoms, and PMH (Hx embolic CVA), pt presents w/ risk factors for dysphagia/aspiration. It is
recommended that pt is NPO until instrumental swallow study is completed to objectively determine/rule-out aspiration and determine appropriate diet.
Recommendations:
1. NPO
2. Medications whole/crushed in puree
3. Instrumental swallow study (MBSS) to determine best tolerated diet-level and occurrence of aspiration.
--- NOTE | 2025-05-08 11:47 | CARDSERVLU ---
Echocardiogram with [facility] completed after protocol screening completed. Allergies verified.
Patent IV site: _Rt FA___
IV site flushed with 0.9% NaCl pre and post administration.
Diluted bolus method utilized to enhance visualization of ventricular dela cruz.
Total volume given: __3.0_ mL
Patient tolerated all procedures well without complications.
--- NOTE | 2025-05-08 12:14 | CON.CAR ---
Addendum entered and electronically signed by King Fuentes MD 05/08/25 16:48:
I saw and examined the patient.
The Manufacturers Service Representative's note was reviewed and I agree with the note.
Comment:
GEN: No distress, awake,
HEENT: supple, anicteric, mmm
LUNGS: CTA, no wheezes/rales
CV: Reg, S1/S2, 1/6 syst LSB, no gallop
ABD: soft, BS+, NT/ND
EXT: No edema
NEURO: aphasic
SKIN: No rash
Plan:
79-year-old male with past medical history of stroke, coronary artery disease, ischemic cardiomyopathy status post biventricular ICD presents status post eye surgery with new aphasia and new stroke symptoms. Patient was off his aspirin and Plavix
prior to his eye procedure. We are asked to evaluate him for cardiac source of emboli.
Echocardiogram was performed which revealed a stable severely reduced ejection fraction of 25 to 30% with global hypokinesis.
Device check today reveals no current atrial fibrillation as the patient remains in sinus rhythm, however in July he did have an episode of paroxysmal atrial fibrillation.
I reviewed his head CT and head and neck CTA which reveals no obstructive carotid disease.
Of note device is MRI compatible.
Would recommend initiating anticoagulation (Eliquis 5mg po bid) once safe from a neurologic perspective. He currently remains on aspirin and Plavix.
Continue metoprolol. Would allow some permissive hypertension as per stroke protocol.
Continue Crestor 40 mg daily.
Would defer to outpatient composition floor setter regarding initiation of RAMESH/ARB/Entresto/Aldactone, blood pressure currently on the low side.
Original Note:
Consultation
Consultation Request
Date/Time Consultation Requested: 05/08/2025 at 1004
Date/Time Consultation Performed: 05/08/2025 at 1300
Requesting Provider: Dr. Sanford Fernandez
Performing Provider: Dr. Fuentes
Reason for Consultation: CVA with a history of CAD and CM
Medical History
-
History of Present Illness:
Patient came to the ER yesterday with aphasia and was admitted with suspected CVA and cardiology is now consulted. Patient saw his primary composition floor setter on 04/14/2025 and was feeling well at that point despite known ICM. Patient then had elective
B/L blepharoplasty and apparently held his aspirin and Plavix. It appears the patient is on chronic DAPT therapy because of his h/o CABG and multivessel stenting. 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 EF was 20 to 25% with
his primary composition floor setter in August and is currently 25 to 30%. Upon arrival to the ER patient appeared to be AV paced without evidence of underlying A-fib and device was checked today and showed that patient previously had A-fib in July, but
no recent episodes. It is unclear if patient has a known history of A-fib, it is not listed in his primary composition floor setter records and the patient is not chronically on OAC.
PMH:
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
Chronic DAPT for h/o CAD with multiple stents
CAD
s/p IWMI 1991 treated with tPA and eventual RCA PCI (age 45)
s/p Circ PCI 1994
s/p CABG 2000 at [facility] (JULI to distal RCA known to be occluded, ARDON to LAD and Y-radial graft from ARDON to Circumflex and OM-2, SVG to Diag-1 and Diag-2)
s/p RCA PCI 2006
s/p 2.5 mm BMS x3 to mid LAD 04/15/08
s/p NSTEMI and 3.0 x 12 mm Promus JAMIR to distal Left main on 06/07/17, LAMP ASSEMBLER mid LAD, patent radial Y-graft from NIRANJAN, LAMP ASSEMBLER OM, patent RCA stents
Ischemic CM EF 25% by echo 08/2024 and 25 to 30% by echo 05/08/2025
Chronic HFpEF
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
HTN
Hyperlipidemia
Past Medical History
Past Medical History: Other (In HPI)
Past Surgical History: Cardiac (Circumflex PCI 1994, CABG at [facility] 2000, RCA PCI 2006, BMS to LAD 2007, JAMIR to distal left main 2016, [employer] SYSTEM PLANNING ENGINEER-D)
Social History
Tobacco: Former Smoker
Alcohol: None
Drug: None
Personal:
Living: With Family
Family History
Family History: Early CAD
Allergies / Home Medications
Allergy/AdvReac Type Severity Reaction Status Date / Time
No Known Allergies Allergy Verified 09/22/23 10:53
�Medication �Instructions �Recorded �Confirmed �Type
aspirin 81 mg tablet,delayed 81 mg PO DAILY Blood clot 06/06/17 05/07/25 History
release prevention/tx
clopidogrel 75 mg tablet 75 mg PO DAILY Blood clot 06/06/17 05/07/25 History
prevention/tx
sertraline 50 mg tablet 50 mg PO QPM Mental Health/Anxiety 06/06/17 05/07/25 History
cetirizine 10 mg tablet 10 mg PO DAILY Allergies 06/10/20 05/07/25 History
metoprolol succinate 50 mg 75 mg PO BID Heart Failure 06/10/20 05/07/25 History
tablet,extended release 24 hr
multivitamin with folic acid 400 1 tab PO DAILY Supplement 06/10/20 05/07/25 History
mcg tablet (Tab-A-Tra)
rosuvastatin 40 mg tablet (Crestor) 40 mg PO QPM High cholesterol 06/10/20 05/07/25 History
ranolazine 1,000 mg 1,000 mg PO BID ##60 06/11/20 05/07/25 Rx
tablet,extended release,12 hr
sacubitril 49 mg-valsartan 51 mg 1 tab PO BID 09/22/23 09/22/23 History
tablet (Entresto)
erythromycin 5 mg/gram (0.5 %) eye 1 applic BOTH EYES BID 05/07/25 05/07/25 History
ointment
ezetimibe 10 mg tablet (Zetia) 10 mg PO DAILY 05/07/25 05/07/25 History
fenofibrate nanocrystallized 145 145 mg PO DAILY 05/07/25 05/07/25 History
mg tablet (Tricor)
omega-3 acid ethyl esters 1 gram 2 g PO BID 05/07/25 05/07/25 History
capsule
pantoprazole 40 mg tablet,delayed 40 mg PO DAILY 05/07/25 05/07/25 History
release (Protonix)
Review of Systems
-
History Source: Family and Transfer Record
All other systems: Negative unless noted
Physical Exam
Vital Signs
Temp Pulse Resp BP Pulse Ox
97.5 F 61 16 117/69 100
05/08/25 12:05 05/08/25 12:05 05/08/25 12:05 05/08/25 12:05 05/08/25 12:05
GEN: NAD. Aphasic
HEENT: s/p blepharoplasty with minimal ecchymosis, EOMI
LUNGS: RA. CTA B/L, no wheeze
CV: AV paced on telemetry. Reg, S1/S2, no murmur
ABD:ND
EXT: No edema B/L
NEURO: Gross non-focal
SKIN: No rash
Lab Results
05/07/25 20:31
05/08/25 09:57
Troponin I 0.053 ng/ml H* 05/08/25 08:43
Impression / Plan
-
PCP: Dr. Hackett
Cardiology: Dr. Kosta Kendall at [facility] [place] [phone]
Impression:
Admitted with aphasia and suspected CVA 05/07/2025
Likely left MCA territory CVA, await MRI
Elevated troponin
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
Chronic DAPT for h/o CAD with multiple stents
CAD
s/p IWMI 1991 treated with tPA and eventual RCA PCI (age 45)
s/p Circ PCI 1994
s/p CABG 2000 at [facility] (JULI to distal RCA known to be occluded, ARDON to LAD and Y-radial graft from ARDON to Circumflex and OM-2, SVG to Diag-1 and Diag-2)
s/p RCA PCI 2006
s/p 2.5 mm BMS x3 to mid LAD 04/15/08
s/p NSTEMI and 3.0 x 12 mm Promus JAMIR to distal Left main on 06/07/17, LAMP ASSEMBLER mid LAD, patent radial Y-graft from NIRANJAN, LAMP ASSEMBLER OM, patent RCA stents
Ischemic CM EF 25% by echo 08/2024 and 25 to 30% by echo 05/08/2025
Chronic HFpEF
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
HTN
Hyperlipidemia
Paroxysmal A-fib
Not chronically anticoagulated for unclear reasons
Lexiscan mibi 03/01/17: moderate fixed inferior, apical and septal defects without ischemia, EF 50%
Echo 11/08/16: EF 35%, mild MR
Echo 06/07/17 shows EF 25-30%, mild mitral regurgitation
ECHO 08/07/17: EF 25-30%, septum, apex, inferior, and inferolateral dela cruz hypokinetic, apex not well visualized but appears hypokinetic, abnormal septal motion, mild MR, trace TR
[facility] 20 to 25%, mild to moderate MR
Echo 05/08/2025: PM study, EF 25 to 30% with global hypokinesis, normal RV size and function, trace TR with PAP 27 mmHg
Plan:
-Patient came to the ER yesterday with aphasia and was admitted with suspected CVA and cardiology is now consulted. Patient saw his primary composition floor setter on 04/14/2025 and was feeling well at that point despite known ICM. Patient then had elective
B/L blepharoplasty and apparently held his aspirin and Plavix. It appears the patient is on chronic DAPT therapy because of his h/o CABG and multivessel stenting. 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 EF was 20 to 25% with
his primary composition floor setter in August and is currently 25 to 30%. Upon arrival to the ER patient appeared to be AV paced without evidence of underlying A-fib and device was checked today and showed that patient previously had A-fib in July, but
no recent episodes. It is unclear if patient has a known history of A-fib, it is not listed in his primary composition floor setter records and the patient is not chronically on OAC.
-ECG reviewed by me is AV paced
-Patient admitted with CVA and was out of the window for tPA/TNK therapy. Patient is awaiting MRI, but neurology suspects a left MCA territory CVA and patient now aphasic with some right sided hemiparesis.
-Patient has a [employer] SYSTEM PLANNING ENGINEER�D, I called the MRI department and gave them patient's device information along with the phone number of the patient's primary composition floor setter to facilitate necessary paperwork being completed to allow for MRI brain
-I reviewed the patient's device check with the device new accounts representative and there was evidence of A-fib in July, but nothing recently, no VT VF, lead testing was normal, the battery life is 5-1/2 years and it is not MRI conditional system so he
should be able to have MRI so long as there are no old/retained leads
-Neurology note reviewed, patient CVA happened with discontinuation of aspirin and Plavix for his eyelid surgery and they recommend restarting aspirin and Plavix, but we now know the patient also has a history of paroxysmal A-fib although last
episode was in July according to his device check today.
-Would recommend OAC, likely Eliquis and then either continue with aspirin or Plavix.
-Await MRI of brain and clearance from neurology prior to starting OAC.
-I called and updated the patient's primary composition floor setter and that I also requested and received records that I reviewed and summarized in this note.
-Patient with known ICM and EF was 20 to 25% by echo 08/2024 and now 25 to 30%.
-Outpatient dose of Toprol XL 75 mg BID is on hold while NPO
-Outpatient dose of Entresto 24/26 mg BID is on hold while NPO
-Patient is not chronically on loop diuretic
-Initial troponin was 0.048 and then 0.053. A 3rd troponin is pending for this afternoon. No WMA on echo. Will manage as a nonischemic myocardial injury troponin elevation for now.
-Outpatient doses of Crestor 40 mg daily and Zetia 10 mg daily are on hold while NPO
-Outpatient dose of Ranexa 1000 mg BID is on hold while NPO
--- NOTE | 2025-05-08 15:31 | CM ---
Pt
aphasic . Called Anita said that they live in 1 one story home with 2 steps into home. said he was assisted with ADls.CPAP unsure of DME. He had a pacemaker placed 3 years ago is unsure of doctor or hospital.KOENIG explained to
copy left. Advanced directive pkg given.
No VN/SNF hx.
Pharmacy [facility]
PCP Dr Santana
PLAN To be determined
[2025-05-08] MEDS: ZETIA 10 MG PO (15:32)
--- NOTE | 2025-05-08 16:42 | PTOTSP ---
Speech Therapy VSE:
Patient presents with mild oral and severe pharyngeal stage of swallowing. Patient demonstrated gross aspiration with thin liquids with and without compensatory strategies. Trace aspiration observed with mildly thick liquids and deep laryngeal
penetration observed with puree. There was moderate-severe pharyngeal residue, which was most prominent in the pyriform sinuses and seen to be penetrated/aspirated during the study. Etiology of swallowing is felt to be due to CVA. Please see
patient care note for full details of penetration/aspiration and swallowing physiology.
Recommend:
1. NPO with consideration of non-oral means of nutrition given severity of dysphagia and poor prognosis for short-term improvement
2. Medications non-oral
3. Allow ARHP via sparing ice chips following oral care and with supervision
4. Modifiable risk factors for aspiration pneumonia including encouraging frequent and thorough oral care, pulmonary hygiene measures, and increasing physical mobility as medically feasible
5. CHECK WRITING MACHINE OPERATOR to follow for education regarding VSE findings and recommendations and training in pharyngeal strengthening exercises
[2025-05-08 16:49] LABS: Troponin I 0.061 ng/ml
--- NOTE | 2025-05-08 20:30 | PTCARENOTE ---
Patient drowsy during initial NIH scale for 1999. Has severe aphasia and dysarthria. Mild facial droop to the right side. Able to follow simple commands. Strength good for both B/L upper and lower extremities. Noted some right sided weakness
compared to the left at times. No drift noted on any extremity. PERRLA. Patient able to nod head and point to things on papers. Sometimes can say 'yes', 'no', and 'I don't know'. Able to stick out tongue, smile, and close mouth. NPO at this time.
Can be difficult to assess due to severe slurring and inability to effectively communicate and articulate thoughts. This RN completed NIH scale to the best of their ability. Call bagley is within reach.
[2025-05-09 03:01] VITALS: BP 129/54
[2025-05-09 06:00] VITALS: BMI 29.2
[2025-05-09 06:45] VITALS: BP 177/67
[2025-05-09 07:14] LABS: Hematocrit 34.0 % (39.0-52.0); Hemoglobin 11.2 g/dL (13.0-18.0); Mean Corp Hgb Conc. 32.9 g/dL (33.0-37.0); Mean Corpuscular Volume 98.6 fL (80.0-94.0); Nucleated Red Blood Cells % 0 % (-); Platelet Count 185 10^3/uL (130-400); Red Cell Dist. Width 12.6 % (11.5-14.5)
--- NOTE | 2025-05-09 07:37 | W.PN.HOSP.TC ---
Addendum entered and electronically signed by Sanford Fernandez MD 05/09/25 16:06:
Acute CVA with new onset aphasia
MRI brain pending
2D without vegetation
Cardiology reviewed pacemaker, brief run of atrial fibrillation few months back.
Telemetry
PT OT speech
DAPT, LDL less than 64 continue home Crestor Zetia per neurology
4 days post CVA neurology okay with starting Eliquis dropping Plavix and continuing aspirin
Dysphagia�oropharyngeal related to recent stroke
Dobbhoff, nutrition consult, start tube feeds
Continue speech
Discussed with family potential need for PEG tube if not improved
Elevated troponin likely related to acute CVA, trend to peak
Will check 2D echocardiogram to assess for wall motion abnormality and EF
Hyperkalemia
Holding Entresto
Repeat BMP
HFrEF
Compensated
Resume GDMT which includes beta-uriah Entresto
I personally reviewed and evaluated this patient with the resident. I agree with above unless if otherwise stated below.
I personally reviewed labs and imaging database reporting consultant notes case management note
Original Note:
Today's Communication/Plan
-
MRI brain
Dobbhoff tube for feeding and medications
PT/OT
Case management consult
Assessment / Plan
Assessment / Plan
Patient is a 79-year-old male with past medical history significant for hypertension hyperlipidemia coronary artery disease, ischemic cardiomyopathy who presented to the [facility] ED for evaluation of aphasia and right-sided neglect. Patient was found
by his , having difficulty in uttering words
History of large stroke about 2 years ago
In the ED systolic blood pressure was in 90s, blood work was unremarkable.
CT brain did not show any acute changes, CT brain perfusion with ischemic penumbra in left frontal lobe and region of the insula
CT angio showed no evidence of significant stenosis of common carotid arteries, carotid bulb or internal carotid arteries
Patient with severe aphasia and unable to communicate appropriately but follows commands.
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
Most likely secondary to discontinuation of dual antiplatelet therapy for eyelid surgery
Neurology recommendations appreciated-dual antiplatelet therapy lifelong when able to tolerate, optimize blood pressure and cholesterol levels
Speech evaluation done-keep n.p.o., consider nonoral means of nutrition and medication, pharyngeal strengthening exercises
Currently oral medications on hold
Cardio consult appreciated-echo with stable severely reduced ejection fraction of 25 to 30% with global hypokinesis, device check with no current A-fib remains in sinus rhythm, no obstructive carotid disease, recommend initiating Eliquis when
tolerating oral meds
HbA1c 5.7
LDL 64, triglycerides 134, total cholesterol 138
MRI brain pending
Dobbhoff tube placement for medications and feeding
#hypertension
-Continue medications as able
-Blood pressure on lower side
#hyperlipidemia
-Continue medications as able
- Lipid panel looks good
#CAD
-Resume medications as able
#ischemic cardiomyopathy
#Hyperkalemia
Resolved, Entresto on hold
Continue to monitor
Code status: full code
DVT prophylaxis: SCDs
Anticipated Discharge: 24 - 48 hours
Subjective/Interval History
-
Date of Service: May 09, 2025
Patient seen and examined at bedside
Patient upset, confused and overwhelmed
He nodes that he wants to nasogastric tube but then points out to No on the paper, unable to write
Objective Data
-
Labs:
Laboratory Results
05/09/25
05:52
WBC 9.3
Hgb 11.2 L
Hct 34.0 L
Plt Count 185
Sodium Pending
Potassium Pending
Chloride Pending
Carbon Dioxide Pending
BUN Pending
Creatinine Pending
Glucose Pending
Calcium Pending
Total Bilirubin Pending
AST Pending
ALT Pending
Alkaline Phosphatase Pending
Vital Signs:
Vital Signs
Temp Pulse Resp BP Pulse Ox
97.6 F 61 18 129/54 96
05/09/25 03:01 05/09/25 03:01 05/09/25 03:01 05/09/25 03:01 05/09/25 03:01
I&O
05/08/25 05/09/25 05/10/25
06:59 06:59 06:59
Output Total 300 / 300 1225 / 1225
Balance -300 / -300 -1225 / -1225
Review of Systems
-
Unable to obtain full review of systems at this time due to: Patient Non-verbal
Physical Exam
-
General: Well Developed, Obese and Other (Patient very upset and confused)
HEENT: Anicteric, Inez Conjunctivae and Other (Dry mucous membranes)
Respiratory: Clear to Auscultation; Negative Wheezes, Rales or Rhonchi
Cardiac: Regular Rhythm, S1/S2 and Murmur (Systolic murmur); Negative Rub or Gallop
GI: Soft, Nontender and Normal Bowel Sounds
Musculoskeletal: No Clubbing, No Cyanosis and No Edema
Neuro: Awake, Slurred Speech and Other (Follows commands, responds/interactive, normal tone and strength)
Psych: Anxious
[2025-05-09 07:44] LABS: ALT (SGPT) 15 U/L (0-50); AST (SGOT) 29 U/L (17-59); Albumin 4.0 g/dl (3.5-5.0); Alkaline Phosphatase 42 U/L (38-126); Blood Urea Nitrogen 29 mg/dl (9-20); Calcium 9.0 mg/dl (8.4-10.2); Carbon Dioxide 20 mmol/L (22-30); Chloride 108 mmol/L (98-107); Estimated Creatinine Clearance 57 ml/min; Glucose 91 mg/dl (70-99); Magnesium 2.1 mg/dl (1.6-2.3); Potassium 4.1 mmol/L (3.5-5.1); Sodium 137 mmol/L (135-145); Total Protein 6.6 g/dl (6.3-8.2); eGFR > 60.00
[2025-05-09] MEDS: ERYTHROMYCIN 0.5% OPHTHALMIC OINTMENT 1 APPLIC BOTH EYES ×2 (08:15→20:26)
--- NOTE | 2025-05-09 08:49 | W.PN.CARDCBS ---
Today's Communication / Plan
-
Device check from yesterday reveals an episode of A-fib in July.
Would initiate Eliquis 5 mg p.o. BID when stable from neurologic standpoint
From a cardiac standpoint I would recommend using aspirin 81 mg with Eliquis long-term when outside of the window for possible bleeding from his stroke
his device is MRI compatible
Continue Toprol
Allow for some permissive hypertension but if blood pressure remains markedly elevated would restart Entresto
Likely will need feeding tube
Going to need aggressive physical therapy/rehab
will follow peripherally
Impression / Plan
-
PCP: Dr. Hackett
Cardiology: Dr. Kosta Kendall at [facility] [phone]
Impression:
Admitted with aphasia and suspected CVA 05/07/2025
Likely left MCA territory CVA, await MRI
Elevated troponin
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
Chronic DAPT for h/o CAD with multiple stents
CAD
s/p IWMI 1991 treated with tPA and eventual RCA PCI (age 45)
s/p Circ PCI 1994
s/p CABG 2000 at [facility] (JULI to distal RCA known to be occluded, ARDON to LAD and Y-radial graft from ARDON to Circumflex and OM-2, SVG to Diag-1 and Diag-2)
s/p RCA PCI 2006
s/p 2.5 mm BMS x3 to mid LAD 04/15/08
s/p NSTEMI and 3.0 x 12 mm Promus JAMIR to distal Left main on 06/07/17, KNOT BORER mid LAD, patent radial Y-graft from NIRANJAN, KNOT BORER OM, patent RCA stents
Ischemic CM EF 25% by echo 08/2024 and 25 to 30% by echo 05/08/2025
Chronic HFpEF
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
HTN
Hyperlipidemia
Paroxysmal A-fib
Not chronically anticoagulated for unclear reasons
Lexiscan mibi 03/01/17: moderate fixed inferior, apical and septal defects without ischemia, EF 50%
Echo 11/08/16: EF 35%, mild MR
Echo 06/07/17 shows EF 25-30%, mild mitral regurgitation
ECHO 08/07/17: EF 25-30%, septum, apex, inferior, and inferolateral dela cruz hypokinetic, apex not well visualized but appears hypokinetic, abnormal septal motion, mild MR, trace TR
[facility], EF 20 to 25%, mild to moderate MR
Echo 05/08/2025: PM study, EF 25 to 30% with global hypokinesis, normal RV size and function, trace TR with PAP 27 mmHg
Plan:
-Patient came to the ER yesterday with aphasia and was admitted with suspected CVA and cardiology is now consulted. Patient saw his primary printing roller polisher on 04/14/2025 and was feeling well at that point despite known ICM. Patient then had elective
B/L blepharoplasty and apparently held his aspirin and Plavix. It appears the patient is on chronic DAPT therapy because of his h/o CABG and multivessel stenting. 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 EF was 20 to 25% with
his primary printing roller polisher in August and is currently 25 to 30%. Upon arrival to the ER patient appeared to be AV paced without evidence of underlying A-fib and device was checked today and showed that patient previously had A-fib in July, but
no recent episodes.
- Unfortunately continues to be markedly aphasic and having difficulty swallowing.
-With paroxysmal atrial fibrillation and July would initiate Eliquis when stable from neurologic standpoint
-With known severe coronary artery disease I would likely treat him with both aspirin and Eliquis assuming bleeding risk from his stroke is overall acceptable.
-I suspect he will likely will need a feeding tube as he has failed his swallowing evaluation
-Blood pressure is elevated. Continue Toprol. It has been on the low side recently. Would allow for some permissive hypertension. Eventually restart Entresto if blood pressure remains elevated
-Would restart high-dose rosuvastatin and continue Zetia.
-Going to need aggressive physical therapy and rehabilitation.
Progress Note - Geomorphology Teacher
Subjective
Date of Service: May 09, 2025
still aphasic
Objective
Labs:
05/09/25 05:52
05/09/25 05:52
Labs
Hgb 11.2 g/dL (13.0-18.0) L 05/09/25 05:52
Hct 34.0 % (39.0-52.0) L 05/09/25 05:52
Plt Count 185 10^3/uL (130-400) 05/09/25 05:52
PT 14.5 Sec (11.4-14.6) 05/07/25 20:31
INR 1.08 05/07/25 20:31
APTT 24.6 Sec (23.4-35.0) 05/07/25 20:31
Sodium 137 mmol/L (135-145) 05/09/25 05:52
Potassium 4.1 mmol/L (3.5-5.1) 05/09/25 05:52
BUN 29 mg/dl (9-20) H 05/09/25 05:52
Creatinine 1.1 mg/dL (0.7-1.3) 05/09/25 05:52
Glucose 91 mg/dl (70-99) 05/09/25 05:52
Troponins
05/08/25 05/08/25 05/08/25
02:02 08:43 13:53
Troponin I 0.048 H* 0.053 H* Cancelled
05/08/25
16:12
Troponin I 0.061 H*
Vital Signs and I&O:
Vital Signs
Temp Pulse Resp BP Pulse Ox
97.7 F 73 20 177/67 96
05/09/25 06:45 05/09/25 06:45 05/09/25 06:45 05/09/25 06:45 05/09/25 08:01
Vital Signs
Temp Pulse Resp BP Pulse Ox
97.7 F 73 20 177/67 96
05/09/25 06:45 05/09/25 06:45 05/09/25 06:45 05/09/25 06:45 05/09/25 08:01
Intake & Output
05/07/25 05/08/25 05/09/25 05/10/25
06:59 06:59 06:59 06:59
Output Total 300 / 300 1225 / 1225
Balance -300 / -300 -1225 / -1225
Physical Exam
Physical Exam
GEN: No distress, awake,
HEENT: supple, anicteric, mmm
LUNGS: CTA, no wheezes/rales
CV: Reg, S1/S2, 1/6 syst LSB, no gallop
ABD: soft, BS+, NT/ND
EXT: No edema
NEURO: aphasic
SKIN: No rash
[2025-05-09 09:31] LABS: Troponin I 0.124 ng/ml
[2025-05-09 11:28] VITALS: BP 116/64
--- NOTE | 2025-05-09 14:41 | W.PN.UPDATE ---
Update Note
Progress Note Update
I proctored Dr. Mays for the placement of Dobhoff tube. It was placed in the left nare in one attempt and secured. Patient tolerated well. CXR confirmation obtained. Stylet to be removed by Dr. Mays. Ok to use Dobhoff tube.
--- NOTE | 2025-05-09 14:55 | W.PN.UPDATE ---
Update Note
Progress Note Update
After discussing with the patient and family, I placed a Dobhoff tube with Abbey Olivarez(G[employer]). He tolerated the procedure well. Position of Dobhoff tube Checked Below Left diaphragm in Stomach.Guidewire Pulled out. Plan to Start
medications and feed through through the feeding tube.
--- NOTE | 2025-05-09 15:19 | W.PN.NEURO.1 ---
Today's Communication / Plan
-
Restart aspirin and clopidogrel routinely and lifelong when able to take by mouth
Provide aspirin per rectum until able to take by mouth
Would be acceptable for the patient to receive both apixaban and aspirin beginning 4 days after stroke onset due to the size and the utilization of both therapies if both are needed by cardiology for treatment
Provide rosuvastatin and Ezetimibe unable to take by mouth
Goal of normotension
Rehabilitation evaluation and treatment
Neuro Assessment/Plan
Assessment
Abrupt onset of aphasia in a patient with discontinuance of aspirin and clopidogrel due to eyelid surgery.
CT perfusion performed yesterday, indicated a perfusion deficit without ischemic core.
Plan
Restart aspirin and clopidogrel routinely and lifelong when able to take by mouth
Provide aspirin per rectum until able to take by mouth
Would be acceptable for the patient to receive both apixaban and aspirin beginning 4 days after stroke onset due to the size and the utilization of both therapies if both are needed by cardiology for treatment
Provide rosuvastatin and Ezetimibe unable to take by mouth
Goal of normotension
Rehabilitation evaluation and treatment
Will follow as needed.
Subjective/Objective
Subjective Data
Date of Service: May 09, 2025
Objective Data
Vital Signs
Temp Pulse Resp BP Pulse Ox
36.7 C 70 20 116/64 99
05/09/25 11:28 05/09/25 11:28 05/09/25 11:28 05/09/25 11:28 05/09/25 11:28
Lab Results
05/09/25 05:52
05/09/25 05:52
PT 14.5 Sec (11.4-14.6) 05/07/25 20:31
INR 1.08 05/07/25 20:31
APTT 24.6 Sec (23.4-35.0) 05/07/25 20:31
Sodium 137 mmol/L (135-145) 05/09/25 05:52
Potassium 4.1 mmol/L (3.5-5.1) 05/09/25 05:52
BUN 29 mg/dl (9-20) H 05/09/25 05:52
Glucose 91 mg/dl (70-99) 05/09/25 05:52
Calcium 9.0 mg/dl (8.4-10.2) 05/09/25 05:52
LDL Cholesterol, Calc 64 mg/dl 05/08/25 06:17
Patient Allergies
No Known Allergies Allergy (Verified 09/22/23 10:53)
Data Reviewed
-
Labs: Report Reviewed
Lipid Profile: Report Reviewed
Reviewed with: Physician
Old Records: Summarized
[2025-05-09 15:30] VITALS: BP 134/62
--- NOTE | 2025-05-09 16:12 | CM ---
veneer department manager reviewed patient's chart and patient is still NPO, physical therapy are recommending acute rehab, patient will need PM&R consult, spouse would be agreeable to [facility] acute [facility].
Plan; Acute rehab, needs PM&R evaluation.
[2025-05-09] MEDS: LOW STRENGTH ASPIRIN 81 MG TUBE (16:54)
--- NOTE | 2025-05-09 16:58 | PTCARENOTE ---
Pt sleeping for long intervals; easily arousable; alert ; oriented to self/place when awake; difficult to assess full orientation d/t severe expressive aphasia; able to say 'yes' and 'no' nods head in response to questions. Pt becomes very
frustrated with attempts to verbalize. THOMSON well, able to transfer to chair/ambulate to BR with assist x1-2/walker, VSS. Telemetry:AV paced rhythm. On room air- pulse ox 97 %, no SOB noted. Abd large, soft; NPO maintained. Lt nares Dobbhof in
place; to start jevity 1.5 feedings when feeding pump available. Voids in urinal with out difficulty; occ spills urinal. Resting in bed at present. Will continue to monitor.
[2025-05-09] MEDS: CRESTOR 40 MG TUBE (17:02)
[2025-05-09 19:50] VITALS: BP 135/63
[2025-05-09] MEDS: LOPRESSOR TUBE (19:52)
[2025-05-09 23:20] VITALS: BP 128/62
[2025-05-10] VITALS (8 sets, daily range): BP systolic 87–140; BP diastolic 54–67; PULSE 65–87; BMI 28.6
[2025-05-10 07:13] LABS: Hematocrit 33.5 % (39.0-52.0); Hemoglobin 11.1 g/dL (13.0-18.0); Mean Corp Hgb Conc. 33.1 g/dL (33.0-37.0); Mean Corpuscular Volume 98.8 fL (80.0-94.0); Nucleated Red Blood Cells % 0 % (-); Platelet Count 175 10^3/uL (130-400); Red Cell Dist. Width 12.6 % (11.5-14.5)
[2025-05-10 07:38] LABS: ALT (SGPT) 19 U/L (0-50); AST (SGOT) 40 U/L (17-59); Albumin 4.1 g/dl (3.5-5.0); Alkaline Phosphatase 43 U/L (38-126); Blood Urea Nitrogen 29 mg/dl (9-20); Calcium 9.2 mg/dl (8.4-10.2); Carbon Dioxide 24 mmol/L (22-30); Chloride 106 mmol/L (98-107); Estimated Creatinine Clearance 57 ml/min; Glucose 120 mg/dl (70-99); Magnesium 2.3 mg/dl (1.6-2.3); Potassium 4.0 mmol/L (3.5-5.1); Sodium 138 mmol/L (135-145); Total Protein 7.0 g/dl (6.3-8.2); eGFR > 60.00
[2025-05-10] MEDS: LOPRESSOR TUBE ×2 (09:37→20:03)
[2025-05-10] MEDS: ZETIA 10 MG TUBE (09:37)
[2025-05-10] MEDS: PLAVIX 75 MG TUBE (09:38)
[2025-05-10] MEDS: ERYTHROMYCIN 0.5% OPHTHALMIC OINTMENT 1 APPLIC BOTH EYES ×2 (09:38→21:06)
[2025-05-10] MEDS: LOW STRENGTH ASPIRIN 81 MG TUBE (09:38)
--- NOTE | 2025-05-10 11:35 | W.PN.HOSP.TC ---
Addendum entered and electronically signed by Snaford Fernandez MD 05/10/25 13:13:
Acute CVA with new onset aphasia
MRI brain pending, difficult to obtian since PPM
2D without vegetation
Cardiology reviewed pacemaker, brief run of atrial fibrillation few months back.
Telemetry
PT OT speech
DAPT, LDL less than 64 continue home Crestor Zetia per neurology
4 days post CVA neurology okay with starting Eliquis dropping Plavix and continuing aspirin
Dysphagia�oropharyngeal related to recent stroke
Dobbhoff, nutrition consult, start tube feeds
Continue speech
Discussed with family potential need for PEG tube if not improved
Elevated troponin likely related to acute CVA, trend to peak
Will check 2D echocardiogram to assess for wall motion abnormality and EF
Hyperkalemia
Holding Entresto
Repeat BMP
HFrEF
Compensated
Resume GDMT which includes beta-uriah Entresto
I personally reviewed and evaluated this patient with the resident. I agree with above unless if otherwise stated below.
I personally reviewed labs and imaging internal consultant notes case management note
Original Note:
Today's Communication/Plan
-
MRI brain
Assessment / Plan
Assessment / Plan
Patient is a 79-year-old male with past medical history significant for hypertension hyperlipidemia coronary artery disease, ischemic cardiomyopathy who presented to the [facility] ED for evaluation of aphasia and right-sided neglect. Patient was found
by his , having difficulty in uttering words
History of large stroke about 2 years ago
In the ED systolic blood pressure was in 90s, blood work was unremarkable.
CT brain did not show any acute changes, CT brain perfusion with ischemic penumbra in left frontal lobe and region of the insula
CT angio showed no evidence of significant stenosis of common carotid arteries, carotid bulb or internal carotid arteries
Patient with severe aphasia and unable to communicate appropriately but follows commands.
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
Most likely secondary to discontinuation of dual antiplatelet therapy for eyelid surgery
Neurology recommendations appreciated-dual antiplatelet therapy lifelong when able to tolerate, optimize blood pressure and cholesterol levels
Speech evaluation done-keep n.p.o., consider nonoral means of nutrition and medication, pharyngeal strengthening exercises
Currently oral medications on hold
Cardio consult appreciated-echo with stable severely reduced ejection fraction of 25 to 30% with global hypokinesis, device check with no current A-fib remains in sinus rhythm, no obstructive carotid disease, recommend initiating Eliquis when
tolerating oral meds
HbA1c 5.7
LDL 64, triglycerides 134, total cholesterol 138
MRI brain pending
Dobbhoff tube placement for medications and feeding
MRI pending
#hypertension
-Continue medications as able
-Blood pressure on lower side
#hyperlipidemia
-Continue medications as able
- Lipid panel looks good
#CAD
-Resume medications as able
#ischemic cardiomyopathy
#Hyperkalemia
Resolved, Entresto on hold
Continue to monitor
Code status: full code
DVT prophylaxis: SCDs
Anticipated Discharge: 24 - 48 hours
Subjective/Interval History
-
Date of Service: May 10, 2025
Patient seen and examined at bedside
Uttering a few words, unable to communicate appropriately
Dobbhoff tube in place
Objective Data
-
Labs:
Laboratory Results
05/10/25
06:28
WBC 8.3
Hgb 11.1 L
Hct 33.5 L
Plt Count 175
Sodium 138
Potassium 4.0
Chloride 106
Carbon Dioxide 24
BUN 29 H
Creatinine 1.1
Glucose 120 H
Calcium 9.2
Total Bilirubin 0.8
AST 40
ALT 19
Alkaline Phosphatase 43
Vital Signs:
Vital Signs
Temp Pulse Resp BP Pulse Ox
97.8 F 61 16 122/57 97
05/10/25 10:50 05/10/25 10:50 05/10/25 10:50 05/10/25 10:50 05/10/25 10:50
I&O
05/09/25 05/10/25 05/11/25
06:59 06:59 06:59
Intake Total 115 / 115
Output Total 1225 / 1225
Balance -1225 / -1225 115 / 115
Review of Systems
-
Unable to obtain full review of systems at this time due to: Patient Non-verbal
Physical Exam
-
General: Well Developed, Well Nourished, Slurred Speech and Other (Dobbhoff tube in place)
HEENT: Anicteric and [place] Conjunctivae
Respiratory: Clear to Auscultation; Negative Wheezes, Rales or Rhonchi
Cardiac: Regular Rhythm and S1/S2; Negative Murmur, Rub or Gallop
GI: Soft, Nontender and Normal Bowel Sounds
Musculoskeletal: No Clubbing, No Cyanosis and No Edema
Skin: Warm and Dry
Neuro: Awake, Nonfocal/Grossly Intact, Slurred Speech and Other (Follows commands, responds/interactive, normal tone and strength)
Psych: Calm
[2025-05-10] MEDS: CRESTOR 40 MG TUBE (17:08)
[2025-05-11 03:26] VITALS: BP 117/64
[2025-05-11 05:04] LABS: Hematocrit 33.5 % (39.0-52.0); Hemoglobin 11.4 g/dL (13.0-18.0); Mean Corp Hgb Conc. 34.0 g/dL (33.0-37.0); Mean Corpuscular Volume 98.0 fL (80.0-94.0); Nucleated Red Blood Cells % 0 % (-); Platelet Count 178 10^3/uL (130-400); Red Cell Dist. Width 12.5 % (11.5-14.5)
[2025-05-11 05:31] LABS: ALT (SGPT) 20 U/L (0-50); AST (SGOT) 46 U/L (17-59); Albumin 4.1 g/dl (3.5-5.0); Alkaline Phosphatase 45 U/L (38-126); Blood Urea Nitrogen 27 mg/dl (9-20); Calcium 9.1 mg/dl (8.4-10.2); Carbon Dioxide 23 mmol/L (22-30); Chloride 107 mmol/L (98-107); Estimated Creatinine Clearance 63 ml/min; Glucose 135 mg/dl (70-99); Magnesium 2.3 mg/dl (1.6-2.3); Potassium 3.9 mmol/L (3.5-5.1); Sodium 141 mmol/L (135-145); Total Protein 6.8 g/dl (6.3-8.2); eGFR > 60.00
--- NOTE | 2025-05-11 05:47 | PTCARENOTE ---
Pts HR 100-110, pt afebrile, denies pain, BP 106/55. Pt unable to void, bladder scanned for 462 mls- notified TIRE REPAIR MECHANIC, order to cath. Pt straight cathed for 450 mls clear tea colored urine.
[2025-05-11 06:00] VITALS: BMI 28.6
[2025-05-11 07:00] VITALS: BP 110/61
[2025-05-11] MEDS: ERYTHROMYCIN 0.5% OPHTHALMIC OINTMENT 1 APPLIC BOTH EYES ×2 (08:11→20:34)
[2025-05-11] MEDS: ELIQUIS 5 MG TUBE ×2 (08:11→20:34)
[2025-05-11] MEDS: ZETIA 10 MG TUBE (08:11)
[2025-05-11] MEDS: LOW STRENGTH ASPIRIN 81 MG TUBE (08:11)
[2025-05-11] MEDS: LOPRESSOR TUBE ×2 (08:13→19:57)
[2025-05-11 11:11] VITALS: BP 116/55
--- NOTE | 2025-05-11 11:54 | W.PN.HOSP.TC ---
Addendum entered and electronically signed by Sanford Fernandez MD 05/11/25 13:23:
Acute CVA with new onset aphasia
MRI brain pending, difficult to obtian since PPM
2D without vegetation
Cardiology reviewed pacemaker, brief run of atrial fibrillation few months back.
Telemetry
PT OT speech
DAPT, LDL less than 64 continue home Crestor Zetia per neurology
4 days post CVA neurology okay with starting Eliquis dropping Plavix and continuing aspirin
Dysphagia�oropharyngeal related to recent stroke
Dobbhoff, nutrition consult, start tube feeds
Continue speech
Discussed with family potential need for PEG tube if not improved
Elevated troponin likely related to acute CVA, trend to peak
2d echo without WMA
Hyperkalemia
Holding Entresto
Repeat BMP
HFrEF, nyha class III, EF 25-30
Compensated
Resume GDMT which includes beta-uriah Entresto
Cards follow up as outpatient
I personally reviewed and evaluated this patient with the resident. I agree with above unless if otherwise stated below.
I personally reviewed labs and imaging oracle consultant notes case management note
Original Note:
Today's Communication/Plan
-
Physiatry consult
Brain MRI
Assessment / Plan
Assessment / Plan
Patient is a 79-year-old male with past medical history significant for hypertension hyperlipidemia coronary artery disease, ischemic cardiomyopathy who presented to the [facility] ED for evaluation of aphasia and right-sided neglect. Patient was found
by his , having difficulty in uttering words
History of large stroke about 2 years ago
In the ED systolic blood pressure was in 90s, blood work was unremarkable.
CT brain did not show any acute changes, CT brain perfusion with ischemic penumbra in left frontal lobe and region of the insula
CT angio showed no evidence of significant stenosis of common carotid arteries, carotid bulb or internal carotid arteries
Patient with severe aphasia and unable to communicate appropriately but follows commands.
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
Most likely secondary to discontinuation of dual antiplatelet therapy for eyelid surgery
Neurology recommendations appreciated-dual antiplatelet therapy lifelong when able to tolerate, optimize blood pressure and cholesterol levels
Speech evaluation done-keep n.p.o., consider nonoral means of nutrition and medication, pharyngeal strengthening exercises
Currently oral medications on hold
Cardio consult appreciated-echo with stable severely reduced ejection fraction of 25 to 30% with global hypokinesis no vegetations, device check with brief run of A-fib, now remains in sinus rhythm, no obstructive carotid disease, recommend
initiating Eliquis when tolerating oral meds,
HbA1c 5.7
LDL 64, triglycerides 134, total cholesterol 138
MRI brain pending
Dobbhoff tube placement for medications and feeding
4 days post CVA-started Eliquis, held Plavix
MRI pending
#hypertension
-Continue medications as able
-Blood pressure on lower side
#hyperlipidemia
-Continue medications as able
- Lipid panel looks good
#CAD
-Resume medications as able
#ischemic cardiomyopathy
#Hyperkalemia
Resolved, Entresto on hold
Continue to monitor
PT OT recommended acute rehab-physiatry consult in a.m.
Code status: full code
DVT prophylaxis: SCDs
Anticipated Discharge: > 48 hours
Subjective/Interval History
-
Date of Service: May 11, 2025
Patient seen and examined at bedside
No active issues, remains on feeding tube, PT/OT/SP on board
Objective Data
-
Labs:
Laboratory Results
05/11/25
04:38
WBC 9.4
Hgb 11.4 L
Hct 33.5 L
Plt Count 178
Sodium 141
Potassium 3.9
Chloride 107
Carbon Dioxide 23
BUN 27 H
Creatinine 1.0
Glucose 135 H
Calcium 9.1
Total Bilirubin 0.7
AST 46
ALT 20
Alkaline Phosphatase 45
Vital Signs:
Vital Signs
Temp Pulse Resp BP Pulse Ox
97.4 F 62 16 116/55 99
05/11/25 11:11 05/11/25 11:11 05/11/25 11:11 05/11/25 11:11 05/11/25 11:11
I&O
05/10/25 05/11/25 05/12/25
06:59 06:59 06:59
Intake Total 115 / 115 540 / 540
Output Total 450 / 450
Balance 115 / 115 90 / 90
Review of Systems
-
All other systems: Reviewed and negative
Physical Exam
-
General: Well Developed, Well Nourished and No Apparent Distress
HEENT: Normocephalic, Atraumatic, Moist Mucous Membranes, Anicteric and [place] Conjunctivae
Respiratory: Clear to Auscultation; Negative Wheezes, Rales or Rhonchi
Cardiac: Regular Rhythm and S1/S2
GI: Soft, Nontender and Normal Bowel Sounds
Musculoskeletal: No Clubbing, No Cyanosis and No Edema
Skin: Warm and Dry
Neuro: Awake, AO x 3, Nonfocal/Grossly Intact, Slurred Speech and Other (Dysphagia)
Psych: Calm
[2025-05-11] MEDS: TYLENOL 650 MG TUBE (14:33)
[2025-05-11 15:00] VITALS: BP 110/58
[2025-05-11] MEDS: LOPRESSOR 5 MG IV (16:21)
[2025-05-11] MEDS: CRESTOR 40 MG TUBE (16:49)
[2025-05-11 19:27] VITALS: BP 102/62
[2025-05-11 23:38] VITALS: BP 118/65
[2025-05-12] VITALS (8 sets, daily range): BP systolic 105–138; BP diastolic 51–65; PULSE 55; O2SAT 98; BMI 28.4
[2025-05-12 08:13] LABS: Hematocrit 32.5 % (39.0-52.0); Hemoglobin 10.8 g/dL (13.0-18.0); Mean Corp Hgb Conc. 33.2 g/dL (33.0-37.0); Mean Corpuscular Volume 98.8 fL (80.0-94.0); Nucleated Red Blood Cells % 0 % (-); Platelet Count 176 10^3/uL (130-400); Red Cell Dist. Width 12.6 % (11.5-14.5)
[2025-05-12 08:38] LABS: ALT (SGPT) 21 U/L (0-50); AST (SGOT) 36 U/L (17-59); Albumin 3.8 g/dl (3.5-5.0); Alkaline Phosphatase 39 U/L (38-126); Blood Urea Nitrogen 27 mg/dl (9-20); Calcium 8.9 mg/dl (8.4-10.2); Carbon Dioxide 23 mmol/L (22-30); Chloride 107 mmol/L (98-107); Estimated Creatinine Clearance 57 ml/min; Glucose 145 mg/dl (70-99); Magnesium 2.3 mg/dl (1.6-2.3); Potassium 4.1 mmol/L (3.5-5.1); Sodium 137 mmol/L (135-145); Total Protein 6.5 g/dl (6.3-8.2); eGFR > 60.00
--- NOTE | 2025-05-12 08:45 | W.PN.HOSP.TC ---
Addendum entered and electronically signed by Sakina Ward MD 05/12/25 14:00:
Attending�addendum:
I�saw�and�evaluated�the�patient.�I�reviewed�the�resident�s�note�and�agree�with�findings�and�plan�as�documented�in�the�resident�s�note.��
�patient seen and examined at bedside, patient still and continues to be aphasic and failed swallow eval, otherwise denies any chest pain or shortness of breath.
Physical�exam:
GENERAL : Patient is awake, alert, oriented x3
HEENT: Nonicteric sclerae, PERRLA, EOMI. Oropharynx clear. Moist mucous membranes. Conjunctivae appear well perfused.
CHEST: Chest wall is nontender.
HEART: Regular rate and rhythm without murmurs.
LUNGS: Clear to auscultation bilaterally.
ABDOMEN: Soft, positive bowel sounds, nontender, no organomegaly.
RECTAL: Deferred.
SKIN: No rash, no excessive bruising, petechiae, or purpura.
NEUROLOGIC: Slurred speech.
�
Assessment/plan:
Acute left-sided CVA.
CT brain did not show any acute changes, CT brain perfusion with ischemic penumbra in left frontal lobe and region of the insula
CT angio showed no evidence of significant stenosis of common carotid arteries, carotid bulb or internal carotid arteries
As per neurology, no need to get MRI
Patient upgraded to inpatient.
Consult rehab, patient will need acute rehab.
Aspirin/Eliquis
Paroxysmal A-fib.
Appreciate cardiology input.
Continue Eliquis/metoprolol
Patient currently in sinus rhythm
Dysphagia secondary to Acute CVA
Patient continued to fail swallow eval.
For video swallow on .
Hypertension.
Continue home meds.
Hyperlipidemia.
Continue statin
CODE STATUS: Full code
DVT prophylaxis: Eliquis
Diet: tube feeding.
Disposition: Video swallow on
�
Total�time�spent�on�today�s�encounter�was�55�minutes�which�included�time�spent�in�counseling�the�patient/family�regarding�diagnosis�and�treatment�plan�as�listed�above,�goals�of�care,�and�symptom�management.�Case�was�discussed�with�nursing�staff,�spec
ialists,�and�care�coordinators/case�management.�All�labs�and�imaging�personally�reviewed�by�me.�Remainder�the�time�spent�in�detailed�review�of�previous�records,�lab�data,�imaging,�and�other�medical�provider�documentation.
Original Note:
Today's Communication/Plan
-
Physiatry consult
Speech therapy
MRI brain
Assessment / Plan
Assessment / Plan
Patient is a 79-year-old male with past medical history significant for hypertension hyperlipidemia coronary artery disease, ischemic cardiomyopathy who presented to the [facility] ED for evaluation of aphasia and right-sided neglect. Patient was found
by his , having difficulty in uttering words
History of large stroke about 2 years ago
In the ED systolic blood pressure was in 90s, blood work was unremarkable.
CT brain did not show any acute changes, CT brain perfusion with ischemic penumbra in left frontal lobe and region of the insula
CT angio showed no evidence of significant stenosis of common carotid arteries, carotid bulb or internal carotid arteries
Patient with severe aphasia and unable to communicate appropriately but follows commands.
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
Most likely secondary to discontinuation of dual antiplatelet therapy for eyelid surgery
Neurology recommendations appreciated-dual antiplatelet therapy lifelong when able to tolerate, optimize blood pressure and cholesterol levels
Speech evaluation done-keep n.p.o., consider nonoral means of nutrition and medication, pharyngeal strengthening exercises
Currently oral medications on hold
Cardio consult appreciated-echo with stable severely reduced ejection fraction of 25 to 30% with global hypokinesis no vegetations, device check with brief run of A-fib, now remains in sinus rhythm, no obstructive carotid disease, recommend
initiating Eliquis when tolerating oral meds,
HbA1c 5.7
LDL 64, triglycerides 134, total cholesterol 138
MRI brain pending
Speech evaluation-a little improvement but still needs further therapy-repeat video swallowing exam on April-Will consider peg tube if patient does not do well on the exam
4 days post CVA-started Eliquis, held Plavix
MRI pending
#hypertension
-Continue medications as able
-Blood pressure on lower side
#hyperlipidemia
-Continue medications as able
- Lipid panel looks good
#CAD
-Resume medications as able
#ischemic cardiomyopathy
#Hyperkalemia
Resolved, Entresto on hold
Continue to monitor
PT OT recommended acute rehab-physiatry consult in a.m.
Code status: full code
DVT prophylaxis: SCDs
Anticipated Discharge: 24 - 48 hours
Subjective/Interval History
-
Date of Service: May 12, 2025
Patient seen and examined at bedside
Condition remains static, occurs words but cannot make sense of sentences
Feeding tube in place
Understands and cooperates with the exam
Objective Data
-
Labs:
Laboratory Results
05/12/25
07:25
WBC 10.3
Hgb 10.8 L
Hct 32.5 L
Plt Count 176
Sodium 137
Potassium 4.1
Chloride 107
Carbon Dioxide 23
BUN 27 H
Creatinine 1.1
Glucose 145 H
Calcium 8.9
Total Bilirubin 0.5
AST 36
ALT 21
Alkaline Phosphatase 39
Vital Signs:
Vital Signs
Temp Pulse Resp BP Pulse Ox
99.7 F 77 18 122/51 99
05/12/25 07:25 05/12/25 07:25 05/12/25 07:25 05/12/25 07:25 05/12/25 07:25
I&O
05/11/25 05/12/25 05/13/25
06:59 06:59 06:59
Intake Total 540 / 540
Output Total 450 / 450 750 / 750
Balance 90 / 90 -750 / -750
Review of Systems
-
Unable to obtain full review of systems at this time due to: Patient Non-verbal
Physical Exam
-
General: No Apparent Distress, Comfortable and Other (Feeding tube in place)
HEENT: Normocephalic, Anicteric and [place] Conjunctivae
Respiratory: Clear to Auscultation; Negative Wheezes, Rales or Rhonchi
Cardiac: Regular Rhythm and S1/S2
GI: Soft, Nontender and Normal Bowel Sounds
Musculoskeletal: No Clubbing, No Cyanosis and No Edema
Skin: Warm and Dry
Neuro: Awake, AO x 3, Nonfocal/Grossly Intact and Slurred Speech (Interactive, follows commands, normal strength)
Psych: Calm
--- NOTE | 2025-05-12 08:50 | PTOTSP ---
Speech Language Pathology
Pt seen for language tx. 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 Some improvement noted. Provided ice chips with instruction for effortful swallows. Intermittent effort noted. Completed
first 2 sets of 10 without overt signs of aspiration. On 3rd set, completed 5, then had immediate prolonged coughing episode, suspect aspiration. Further ice chips deferred. Pt remains at a high risk for aspiration. Would recommend to repeat VSE
1 week from prior.
Recommend:
(1) Continued NPO
(2) Oral care 4x/day with suctioning as needed
(3) Non-oral meds
(4) Allow sparing ice chips post oral care given supervision per Aspiration Risk Hydration Protocol (ARHP)
(5) Repeat VSE, likely , 05/15
(6) Ask yes/no questions and provide commands in simple 1-step form with model if possible
(7) MAIL TRUCK [employer]IVER to continue to follow for speech/language and dysphagia therapy
[2025-05-12] MEDS: ZETIA 10 MG TUBE (10:02)
[2025-05-12] MEDS: ELIQUIS 5 MG TUBE ×2 (10:02→20:00)
[2025-05-12] MEDS: ERYTHROMYCIN 0.5% OPHTHALMIC OINTMENT 1 APPLIC BOTH EYES ×2 (10:03→19:59)
[2025-05-12] MEDS: LOPRESSOR TUBE ×2 (10:03→20:00)
[2025-05-12] MEDS: LOW STRENGTH ASPIRIN 81 MG TUBE (10:04)
[2025-05-12] MEDS: CRESTOR 40 MG TUBE (18:09)
[2025-05-13] VITALS (8 sets, daily range): BP systolic 116–146; BP diastolic 50–60; PULSE 60; O2SAT 97; BMI 28.5
[2025-05-13] MEDS: TYLENOL 650 MG TUBE (03:31)
[2025-05-13] MEDS: LOPRESSOR 5 MG IV (04:48)
[2025-05-13 08:12] LABS: Hematocrit 31.8 % (39.0-52.0); Hemoglobin 10.5 g/dL (13.0-18.0); Mean Corp Hgb Conc. 33.0 g/dL (33.0-37.0); Mean Corpuscular Volume 98.8 fL (80.0-94.0); Nucleated Red Blood Cells % 0 % (-); Platelet Count 182 10^3/uL (130-400); Red Cell Dist. Width 12.4 % (11.5-14.5)
[2025-05-13 08:46] LABS: Blood Urea Nitrogen 30 mg/dl (9-20); Calcium 8.7 mg/dl (8.4-10.2); Carbon Dioxide 27 mmol/L (22-30); Chloride 106 mmol/L (98-107); Estimated Creatinine Clearance 57 ml/min; Glucose 147 mg/dl (70-99); Potassium 4.3 mmol/L (3.5-5.1); Sodium 138 mmol/L (135-145); eGFR > 60.00
--- NOTE | 2025-05-13 09:13 | W.PN.HOSP.TC ---
Addendum entered and electronically signed by Sakina Ward MD 05/13/25 13:49:
Attending�addendum:
I�saw�and�evaluated�the�patient.�I�reviewed�the�resident�s�note�and�agree�with�findings�and�plan�as�documented�in�the�resident�s�note.��
�patient seen and examined at bedside, patient still continues to be aphasic and failed swallow eval, otherwise denies any chest pain or shortness of breath.
Physical�exam:
GENERAL : Patient is awake, alert, oriented x3
HEENT: Nonicteric sclerae, PERRLA, EOMI. Oropharynx clear. Moist mucous membranes. Conjunctivae appear well perfused.
CHEST: Chest wall is nontender.
HEART: Regular rate and rhythm without murmurs.
LUNGS: Clear to auscultation bilaterally.
ABDOMEN: Soft, positive bowel sounds, nontender, no organomegaly.
RECTAL: Deferred.
SKIN: No rash, no excessive bruising, petechiae, or purpura.
NEUROLOGIC: Slurred speech.
�
Assessment/plan:
Acute left-sided CVA.
CT brain did not show any acute changes, CT brain perfusion with ischemic penumbra in left frontal lobe and region of the insula
CT angio showed no evidence of significant stenosis of common carotid arteries, carotid bulb or internal carotid arteries
As per neurology, no need to get MRI
Patient upgraded to inpatient.
Consult rehab, patient will need acute rehab.
Aspirin/Eliquis
Paroxysmal A-fib.
Appreciate cardiology input.
Continue Eliquis/metoprolol
Patient currently in sinus rhythm
Dysphagia secondary to Acute CVA
Patient continued to fail swallow eval.
For video swallow on .
Hypertension.
Continue home meds.
Hyperlipidemia.
Continue statin
CODE STATUS: Full code
DVT prophylaxis: Eliquis
Diet: tube feeding.
Disposition: Video swallow on
�
Total�time�spent�on�today�s�encounter�was�53�minutes�which�included�time�spent�in�counseling�the�patient/family�regarding�diagnosis�and�treatment�plan�as�listed�above,�goals�of�care,�and�symptom�management.�Case�was�discussed�with�nursing�staff,�spec
ialists,�and�care�coordinators/case�management.�All�labs�and�imaging�personally�reviewed�by�me.�Remainder�the�time�spent�in�detailed�review�of�previous�records,�lab�data,�imaging,�and�other�medical�provider�documentation.
Original Note:
Today's Communication/Plan
-
Physiatry consult
Pharyngeal strengthening exercises
PT/OT
Assessment / Plan
Assessment / Plan
Patient is a 79-year-old male with past medical history significant for hypertension hyperlipidemia coronary artery disease, ischemic cardiomyopathy who presented to the [facility] ED for evaluation of aphasia and right-sided neglect. Patient was found
by his , having difficulty in uttering words
History of large stroke about 2 years ago
In the ED systolic blood pressure was in 90s, blood work was unremarkable.
CT brain did not show any acute changes, CT brain perfusion with ischemic penumbra in left frontal lobe and region of the insula
CT angio showed no evidence of significant stenosis of common carotid arteries, carotid bulb or internal carotid arteries
Patient with severe aphasia and unable to communicate appropriately but follows commands.
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
Most likely secondary to discontinuation of dual antiplatelet therapy for eyelid surgery
Neurology recommendations appreciated-dual antiplatelet therapy lifelong when able to tolerate, optimize blood pressure and cholesterol levels
Cardio consult appreciated-echo with stable severely reduced ejection fraction of 25 to 30% with global hypokinesis no vegetations, device check with brief run of A-fib, now remains in sinus rhythm, no obstructive carotid disease, recommend
initiating Eliquis when tolerating oral meds,
HbA1c 5.7,LDL 64, triglycerides 134, total cholesterol 138
Speech evaluation-a little improvement but still needs further therapy-repeat video swallowing exam on , May 15, 2025-Will consider peg tube if patient does not do well on the exam
4 days post CVA-started Eliquis, held Plavix
#hypertension
-Continue medications as able
-Blood pressure on lower side
#hyperlipidemia
-Continue medications as able
- Lipid panel looks good
#CAD
-Resume medications as able
#ischemic cardiomyopathy
#Hyperkalemia
Resolved, Entresto on hold
Continue to monitor
PT OT recommended acute rehab-physiatry consult in a.m.
Code status: full code
DVT prophylaxis: SCDs
On tube feeds-repeat swallowing study on
Physiatry consult pending for acute rehab
Anticipated Discharge: 24 - 48 hours
Subjective/Interval History
-
Date of Service: May 13, 2025
Patient seen and examined at bedside
Continues to have difficulty in speaking and swallowing but tries to utter a few words, slight improvement in number of words
No focal neurological deficit
Objective Data
-
Labs:
Laboratory Results
05/13/25
07:59
WBC 9.5
Hgb 10.5 L
Hct 31.8 L
Plt Count 182
Sodium 138
Potassium 4.3
Chloride 106
Carbon Dioxide 27
BUN 30 H
Creatinine 1.1
Glucose 147 H
Calcium 8.7
Vital Signs:
Vital Signs
Temp Pulse Resp BP Pulse Ox
97.1 F 77 20 117/55 100
05/13/25 07:20 05/13/25 07:20 05/13/25 07:20 05/13/25 07:20 05/13/25 07:20
I&O
05/12/25 05/13/25 05/14/25
06:59 06:59 06:59
Intake Total 1060 / 1060
Output Total 750 / 750 500 / 500
Balance -750 / -750 560 / 560
Review of Systems
-
Unable to obtain full review of systems at this time due to: Patient Non-verbal
Physical Exam
-
General: Well Developed, Well Nourished and No Apparent Distress
HEENT: Normocephalic, Moist Mucous Membranes, Anicteric and [place] Conjunctivae
Respiratory: Clear to Auscultation; Negative Wheezes, Rales or Rhonchi
Cardiac: Regular Rhythm and S1/S2
GI: Soft, Normal Bowel Sounds and Other (Dobbhoff in place for feeding and medications)
Musculoskeletal: No Clubbing, No Cyanosis and No Edema
Skin: Warm and Dry
Neuro: Awake, AO x 3, No Motor Deficits, Slurred Speech and Other (Follows commands, responsive, interactive, normal strength and tone)
Psych: Calm
[2025-05-13] MEDS: LOW STRENGTH ASPIRIN 81 MG TUBE (09:41)
[2025-05-13] MEDS: LOPRESSOR 75 MG TUBE (09:41)
[2025-05-13] MEDS: ELIQUIS 5 MG TUBE (09:41)
[2025-05-13] MEDS: ERYTHROMYCIN 0.5% OPHTHALMIC OINTMENT 1 APPLIC BOTH EYES ×2 (09:42→21:26)
[2025-05-13] MEDS: ZETIA 10 MG TUBE (09:42)
--- NOTE | 2025-05-13 16:12 | CM ---
Pt moved to [address] 2 LM with Anita . to review PT OT evaluations.
PT OT indicated acute rehab.
Will confirm with on they wishes.
PLAN Dc planning ongoing Possible acute rehab
[2025-05-13] MEDS: CRESTOR TUBE (17:16)
--- NOTE | 2025-05-13 17:16 | PTCARENOTE ---
Pt was found getting out of his chair. CHair alarm going off. Upon response the DobbHoff was out of place and leaking on his gown. notified MD to make aware that the placement needs to be reaccessed. Portable was done. The DobbHoff is not where it
should be, MD came to see pt bedside and removed the feeding tube.
[2025-05-13] MEDS: ELIQUIS TUBE (21:25)
[2025-05-13] MEDS: LOPRESSOR TUBE (21:25)
[2025-05-14 06:00] VITALS: BMI 28.3
[2025-05-14 07:00] VITALS: BP 112/60
[2025-05-14 07:26] LABS: Hematocrit 31.9 % (39.0-52.0); Hemoglobin 10.7 g/dL (13.0-18.0); Mean Corp Hgb Conc. 33.5 g/dL (33.0-37.0); Mean Corpuscular Volume 100.3 fL (80.0-94.0); Nucleated Red Blood Cells % 0 % (-); Platelet Count 194 10^3/uL (130-400); Red Cell Dist. Width 12.6 % (11.5-14.5)
[2025-05-14 07:58] LABS: Blood Urea Nitrogen 29 mg/dl (9-20); Calcium 9.0 mg/dl (8.4-10.2); Carbon Dioxide 25 mmol/L (22-30); Chloride 106 mmol/L (98-107); Estimated Creatinine Clearance 57 ml/min; Glucose 93 mg/dl (70-99); Potassium 4.2 mmol/L (3.5-5.1); Sodium 139 mmol/L (135-145); eGFR > 60.00
[2025-05-14] MEDS: LOPRESSOR TUBE (08:28)
[2025-05-14] MEDS: ZETIA TUBE (08:28)
[2025-05-14] MEDS: ELIQUIS TUBE (08:28)
[2025-05-14] MEDS: ERYTHROMYCIN 0.5% OPHTHALMIC OINTMENT 1 APPLIC BOTH EYES ×2 (08:28→19:32)
[2025-05-14] MEDS: LOW STRENGTH ASPIRIN TUBE (08:28)
--- NOTE | 2025-05-14 09:25 | W.PN.HOSP.TC ---
Addendum entered and electronically signed by Sakina Ward MD 05/14/25 12:19:
Attending�addendum:
I�saw�and�evaluated�the�patient.�I�reviewed�the�resident�s�note�and�agree�with�findings�and�plan�as�documented�in�the�resident�s�note.��
�patient seen and examined at bedside, patient still continues to be aphasic , otherwise denies any chest pain or shortness of breath.
Removed Dobbhoff yesterday, but passed swallow eval today, cleared for discharge to rehab.
Physical�exam:
GENERAL : Patient is awake, alert, oriented x3
HEENT: Nonicteric sclerae, PERRLA, EOMI. Oropharynx clear. Moist mucous membranes. Conjunctivae appear well perfused.
CHEST: Chest wall is nontender.
HEART: Regular rate and rhythm without murmurs.
LUNGS: Clear to auscultation bilaterally.
ABDOMEN: Soft, positive bowel sounds, nontender, no organomegaly.
RECTAL: Deferred.
SKIN: No rash, no excessive bruising, petechiae, or purpura.
NEUROLOGIC: Still with aphasia.
�
Assessment/plan:
Acute left-sided CVA.
CT brain did not show any acute changes, CT brain perfusion with ischemic penumbra in left frontal lobe and region of the insula
CT angio showed no evidence of significant stenosis of common carotid arteries, carotid bulb or internal carotid arteries
As per neurology, no need to get MRI
Patient upgraded to inpatient.
Consult rehab, patient will need acute rehab.
Aspirin/Eliquis
05/14
Medically cleared for discharge to rehab
Paroxysmal A-fib.
Appreciate cardiology input.
Continue Eliquis/metoprolol
Patient currently in sinus rhythm
Dysphagia secondary to Acute CVA
Patient continued to today.
Started on soft diet.
Hypertension.
Continue home meds.
Hyperlipidemia.
Continue statin
CODE STATUS: Full code
DVT prophylaxis: Eliquis
Diet: Soft
Disposition: Discharge to rehab
�
Total�time�spent�on�today�s�encounter�was�51�minutes�which�included�time�spent�in�counseling�the�patient/family�regarding�diagnosis�and�treatment�plan�as�listed�above,�goals�of�care,�and�symptom�management.�Case�was�discussed�with�nursing�staff,�spec
ialists,�and�care�coordinators/case�management.�All�labs�and�imaging�personally�reviewed�by�me.�Remainder�the�time�spent�in�detailed�review�of�previous�records,�lab�data,�imaging,�and�other�medical�provider�documentation.
Original Note:
Today's Communication/Plan
-
Video swallowing exam
Soft and bite sized food
Meds crushed in puree
Physiatry consult
Assessment / Plan
Assessment / Plan
Patient is a 79-year-old male with past medical history significant for hypertension hyperlipidemia coronary artery disease, ischemic cardiomyopathy who presented to the [facility] ED for evaluation of aphasia and right-sided neglect. Patient was found
by his , having difficulty in uttering words
History of large stroke about 2 years ago
In the ED systolic blood pressure was in 90s, blood work was unremarkable.
CT brain did not show any acute changes, CT brain perfusion with ischemic penumbra in left frontal lobe and region of the insula
CT angio showed no evidence of significant stenosis of common carotid arteries, carotid bulb or internal carotid arteries
Patient with severe aphasia and unable to communicate appropriately but follows commands.
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
Most likely secondary to discontinuation of dual antiplatelet therapy for eyelid surgery
Neurology recommendations appreciated-dual antiplatelet therapy lifelong when able to tolerate, optimize blood pressure and cholesterol levels
Cardio consult appreciated-echo with stable severely reduced ejection fraction of 25 to 30% with global hypokinesis no vegetations, device check with brief run of A-fib, now remains in sinus rhythm, no obstructive carotid disease, recommend
initiating Eliquis when tolerating oral meds,
HbA1c 5.7,LDL 64, triglycerides 134, total cholesterol 138
Swallowing study done-Soft and bite sized food,Oral meds crushed in puree-Oral care aspiration precautions
#hypertension
-Continue medications as able
-Blood pressure on lower side
#hyperlipidemia
-Continue medications as able
- Lipid panel looks good
#CAD
-Resume medications as able
#ischemic cardiomyopathy
#Hyperkalemia
Resolved, Entresto on hold
Continue to monitor
PT OT recommended acute rehab-physiatry consult in a.m.
Code status: full code
DVT prophylaxis: SCDs
On tube feeds-repeat swallowing study on
Physiatry consult pending for acute rehab
Anticipated Discharge: 24 - 48 hours
Subjective/Interval History
-
Date of Service: May 14, 2025
Patient seen and examined at bedside
Condition static, patient pulled out feeding tube yesterday
Did not receive his medications today
Due for swallowing study today
Objective Data
-
Labs:
Laboratory Results
05/14/25
06:59
WBC 10.0
Hgb 10.7 L
Hct 31.9 L
Plt Count 194
Sodium 139
Potassium 4.2
Chloride 106
Carbon Dioxide 25
BUN 29 H
Creatinine 1.1
Glucose 93
Calcium 9.0
Vital Signs:
Vital Signs
Temp Pulse Resp BP Pulse Ox
99.2 F 51 12 112/60 98
05/14/25 07:00 05/14/25 07:00 05/14/25 07:00 05/14/25 07:00 05/14/25 07:00
I&O
05/13/25 05/14/25 05/15/25
06:59 06:59 06:59
Intake Total 1060 / 1060
Output Total 500 / 500
Balance 560 / 560
Review of Systems
-
Unable to obtain full review of systems at this time due to: Patient Non-verbal
Physical Exam
-
General: Well Developed, Well Nourished and No Apparent Distress
HEENT: Moist Mucous Membranes, Anicteric and [place] Conjunctivae
Respiratory: Clear to Auscultation; Negative Wheezes, Rales or Rhonchi
Cardiac: Regular Rhythm and S1/S2
GI: Soft, Nondistended and Normal Bowel Sounds
Musculoskeletal: No Clubbing, No Cyanosis and No Edema
Skin: Warm and Dry
Neuro: Awake, Oriented, Slurred Speech and Other (Interactive, follows commands, normal strength and tone)
Psych: Calm
[2025-05-14 11:35] VITALS: BP 133/61; PULSE 45; O2SAT 98
--- NOTE | 2025-05-14 14:04 | CM ---
Chart reviewed. Plan is for patient to d/c to [facility].
Dobhoff removed, patient now on soft and bite sized diet. [facility] now wiling to accept, possible bed tomorrow. Per Annie/[facility], CM will need to call tomorrow morning to confirm there is a bed available
Video swallow done today, pt passed
Updated hospitalist and patient's spouse
[facility]
Report: [phone]

Plan: D/c to [facility]; pending bed availability tomorrow
--- NOTE | 2025-05-14 14:11 | PTOTSP ---
Videofluoroscopic swallow study
Patient presents with WFL-mild oral stage and moderate pharyngeal dysphagia. Aspiration occurred with thin liquids via straw and consecutive cup sips of mildly thick liquids. Improvements noted compared to prior swallow study (labial seal/oral
containment, swallow onset).
Recommend:
1. IDDSI 6 Soft/Bite Sized, Thin Liquids via SINGLE CUP SIPS
2. Medications: crushed in puree
3. Strategies: partial supervision, small single sips via cup, slow rate
4. Oral care 3x daily to reduce risk for aspiration complications
5. Dysphagia tx and speech tx at the acute care level and after D/C. Inpatient rehab appropriate.
[2025-05-14 14:57] VITALS: BP 133/61; O2SAT 100
[2025-05-14 15:00] VITALS: BP 119/56
[2025-05-14] MEDS: CRESTOR 40 MG PO (17:19)
--- NOTE | 2025-05-14 17:30 | CON.MD ---
Documented by User: Lola Pittman PA-C 05/14/25 18:44
Consultation - Medical
-
Referring Provider:�Sakina Marcus
Chief Complaint:�Stroke
�
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
off his aspirin and plavix since 04/28/2025 for right eyelid repair on 05/01/2025.
CT head and CTA head/neck were negative for acute abnormalities. CT perfusion demonstrated a large 28ml ischemic penumbra and 0ml core infarct. Patient was not a candidate for TNK due to being outside of the time window nor for IAT . He was given
full dose rectal aspirin in the ER.
05/08/25, patient continues to be globally aphasic. Cardiology consulted. Echocardiogram performed which revealed stable severely reduced ejection fraction of 25 to 30% with global hypokinesis. ICD device )MRI compatible) revealed no current atrial
fibrillation, however in July had an episode of paroxysmal atrial fibrillation. Cardiology recommended initiating Eliquis 5mg po bid once safe from a neurologic perspective, continuing Metoprolol, Crestor and deferring initiation of
RAMESH/ARB/Entresto/Aldactone to his OP project production engineer .
Patient failed bedside swallow test. Had Dobhoff tube placement on 05/09/25,. Neurology acceptable with patient receiving both apixaban and aspirin beginning 4 days after stroke onset due to the size and the utilization of both therapies if both are
needed by cardiology for treatment and will follow as needed.
Per his nurse , patient pulled his Dobhoff tube yesterday. Chest x-ray confirmed no Dobhoff tube present. He was taken for video swallow test this morning instead of as was planned.
He was then upgraded to soft and bite sized and thin liquids via single cup sips.
Procedure History:�Cardiac cath, cardiac stent, CABG-2000,s/p Circ PCI 1994, RCA PCI 2006,hooded eyelid repair, endoscopy,
Family History:�Obtained from prior medical record. Mother from rheumatoid disease, father from alcoholism, brother from alcoholism, 1 brother of unclear reasons, 1 brother as a child
�
Social History:�
Functional Level Premorbidly:�Assisted with ADLs eyes by
Functional Level Currently:�Bed mobility�supervision, transfer�mod assist, ambulated 20 feet x 2 with rolling walker and min assist x 2 with second person for safety and
Management, grooming�min assist, toileting�max assist, upper extremity self-care�max assist, lower extremity self-care�min assist,
�
Tobacco:�Former smoker
Alcohol:�Occasional alcohol
Drug use:�Denies�
�
Lives with:�
24-hour assistance available:�
Number of floors:�1
# steps to enter:�2
# steps to second floor: None
Potential First floor set up:�Yes
Driving:�Yes
Occupation:�retired
�
�
Allergies:�
Allergy/AdvReac Type Severity Reaction Status Date / Time
No Known Allergies Allergy Verified 09/22/23 10:53
�
Review of Systems:�
Constitutional: (x) Normal _
Eye: (x) Normal _
Ear/Nose/Throat: (x) Normal _
Respiratory: (x) Normal _
Cardiovascular: (x) Normal _
Gastrointestinal: (x) abNormal dysphagia,_
Genitourinary: (x) Normal _
Musculoskeletal: (x) Normal _
Integumentary: (x) Normal _
Neurologic: (x) abNormal _stroke, global aphasia
Psychiatric: (x) Normal _
Endocrine: (x) Normal _
Hematologic/Lymphatic: (x) Normal _
Allergic/Immunologic: (x) Normal _
�
Medications:�
Active Current Visit Medication List
Category Date Time Status
Acetaminophen [Tylenol/Feverall] Med 05/07/25 23:33 Active
650 mg RECTAL Q4HPRN PRN
Acetaminophen [Tylenol] Med 05/09/25 15:02 Active
650 mg TUBE Q4HPRN PRN
Apixaban [Eliquis] Med 05/11/25 08:00 Active
5 mg TUBE BID
Aspirin Chewable [Low Strength Aspirin] Med 05/09/25 16:00 Active
81 mg TUBE DAILY
Erythromycin (Ilotycin) [Erythromycin 0.5% Ophthalmic Med 05/08/25 08:00 Active
Ointment]
1 applic BOTH EYES BID
Ezetimibe [Zetia] Med 05/09/25 15:05 Active
10 mg TUBE DAILY
HydrALAZINE [Apresoline] Med 05/09/25 09:29 Active
5 mg IV Q6HPRN PRN
Metoprolol [Lopressor] Med 05/08/25 17:30 Active
5 mg IV Q6HPRN PRN
Metoprolol [Lopressor] Med 05/09/25 20:00 Active
75 mg TUBE BID
Rosuvastatin Calcium [Crestor] Med 05/09/25 18:00 Active
40 mg TUBE QPM
�
Vitals:�
Temp Pulse Resp BP Pulse Ox
98 F 50 16 119/56 100
05/14/25 15:00 05/14/25 15:00 05/14/25 15:00 05/14/25 15:00 05/14/25 15:00
Height 5 ft 10 in
Actual Weight 89.499 kg
Body Mass Index (BMI) 28.3
�
Physical Exam:�
General Appearance/Observation: Well-developed, well-nourished individual in no apparent distress.�
Pain/Comfort Assessment: Denies�
Mood/Affect: Appropriate�
�
Integumentary/Operative Site:�
�� Pressure Ulcer Evaluation: absent over heels.�
��
�� Other Type of Wound: absent�
��
�
Eyes: Conjunctiva/Lids: normal���� Pupils: pupils equal round and reactive to light and Accommodation�
Ears/Nose/Throat: oral mucosa moist,� throat clear.������������ Lips/Teeth/Gums: normal�
Neck: No muscle spasm or tenderness�
Cardiovascular: Heart: regular, no murmur�
Pulses: dorsalis pedis 2+ bilaterally�
Respiratory: Respiratory Effort/Chest Expansion: normal������� Auscultation: Clear to auscultation bilaterally�
Gastrointestinal: abdomen not tender, no distension, normal abdominal bowel sounds
Genitourinary: No Swan�
Extremities:�Edema: None�Cyanosis: None�Trophic�changes: None
�
Neurology Exam:
Orientation: Alert-yes, Oriented self, Time, Place�: unable to assess :Aphasia
Memory: Global aphasia
Repetition: aphasia
Comprehension: Intact, nods for yes or no and verbalizes it at times.
Two step command: Impaired, takes time
Naming: aphasia
Cranial Nerves:
�� CNII:�Pupillary light reflex: Intact����Visual Field: unable to assess aphasia , rhythmic head tremor at rest.
�� CN III, IV, : Extraocular muscles: Intact�
�� CN V:�Facial Sensation�at�Forehead: �Maxilla: ,�Mandible: : unable to assess aphasia
�� CN VII:�Facial movement: right weakness, some drooling on right corner of mouth
�� CN VIII:�Hearing: Normal
�� CN IX/X:�Speech & swallow: aphasia, dysarthria- started to say intermittently yes, no, 'you and I ' once but could not complete sentencePosition of Uvula: Midline
�� CN XI:�Shoulder shrug: Symmetric
�� CN XII:�Tongue protrusion: deviated to right
Sensory:
�� Light touch: Intact in bilateral upper and lower extremities- unable to ascertain-aphasia
��
�
Reflexes:
�� Biceps: 1+ bilaterally
�� Brachioradialis: 1+ bilaterally
�� Triceps: 1+ bilaterally
�� Patellar: absent bilaterally
�� Achilles: absent bilaterally
�� Babinski: Down going bilaterally
�� Clonus: None
�� Kaleigh: Negative bilaterally�
Cerebellar: Dysmetria/Ataxia: impairment on right with finger to nose coordination
Musculoskeletal:
Motor: (Manual muscle scale 0-5)�
Muscle SA EF WE EE FF FA HF KE DF EHL PF
Right� 5 5 5 5 5 5 5 5 5 5 5
Left 5 5 5 5 5 5 5 5 5 5 5
�
Tone: Normal in all extremities�
Range of Motion: Passively within normal limits in all extremities�
�
Lab Results:
Labs
WBC 10.0 10^3/uL (4.8-10.8) 05/14/25 06:59
RBC 3.18 10^6/uL (4.70-6.10) L 05/14/25 06:59
Hgb 10.7 g/dL (13.0-18.0) L 05/14/25 06:59
Hct 31.9 % (39.0-52.0) L 05/14/25 06:59
MCV 100.3 fL (80.0-94.0) H 05/14/25 06:59
MCH 33.6 pg (27.0-31.0) H 05/14/25 06:59
MCHC 33.5 g/dL (33.0-37.0) 05/14/25 06:59
RDW 12.6 % (11.5-14.5) 05/14/25 06:59
Plt Count 194 10^3/uL (130-400) 05/14/25 06:59
MPV 11.7 fL (7.4-10.4) H 05/14/25 06:59
Abs Immat Gran (auto) 0.0 10^3/uL (0-0.05) 05/14/25 06:59
Absolute Neuts (auto) 6.3 10^3/uL (1.4-6.5) 05/14/25 06:59
Absolute Lymphs (auto) 2.7 10^3/uL (1.2-3.4) 05/14/25 06:59
Absolute Monos (auto) 0.8 10^3/uL (0.1-0.6) H 05/14/25 06:59
Absolute Eos (auto) 0.1 10^3/uL (0-0.7) 05/14/25 06:59
Absolute Basos (auto) 0.0 10^3/uL (0-0.2) 05/14/25 06:59
Immature Gran % 0.2 % (0-0.5) 05/14/25 06:59
Neutrophils % 63.1 % (42.2-75.2) 05/14/25 06:59
Lymphocytes % 27.4 % (20.5-51.1) 05/14/25 06:59
Monocytes % 7.8 % (1.7-9.3) 05/14/25 06:59
Eosinophils % 1.2 % (0-6) 05/14/25 06:59
Basophils % 0.3 % (0-2) 05/14/25 06:59
Nucleated RBC % 0 % (-) 05/14/25 06:59
ESR 12 mm/hour (0-20) 05/07/25 20:31
PT 14.5 Sec (11.4-14.6) 05/07/25 20:31
INR 1.08 05/07/25 20:31
APTT 24.6 Sec (23.4-35.0) 05/07/25 20:31
Sodium 139 mmol/L (135-145) 05/14/25 06:59
Potassium 4.2 mmol/L (3.5-5.1) 05/14/25 06:59
Chloride 106 mmol/L (98-107) 05/14/25 06:59
Carbon Dioxide 25 mmol/L (22-30) 05/14/25 06:59
BUN 29 mg/dl (9-20) H 05/14/25 06:59
Creatinine 1.1 mg/dL (0.7-1.3) 05/14/25 06:59
Estimated Creat Clear 57 ml/min 05/14/25 06:59
eGFR > 60.00 05/14/25 06:59
Glucose 93 mg/dl (70-99) 05/14/25 06:59
Hemoglobin A1c 5.7 % (4.0-5.6) H 05/08/25 02:02
Calcium 9.0 mg/dl (8.4-10.2) 05/14/25 06:59
Magnesium 2.3 mg/dl (1.6-2.3) 05/12/25 07:25
Total Bilirubin 0.5 mg/dl (0.2-1.3) 05/12/25 07:25
AST 36 U/L (17-59) 05/12/25 07:25
ALT 21 U/L (0-50) 05/12/25 07:25
Alkaline Phosphatase 39 U/L (38-126) 05/12/25 07:25
Troponin I 0.124 ng/ml H* 05/09/25 08:53
Total Protein 6.5 g/dl (6.3-8.2) 05/12/25 07:25
Albumin 3.8 g/dl (3.5-5.0) 05/12/25 07:25
Triglycerides 134 mg/dl (10-149) 05/08/25 06:17
Total Cholesterol 138 mg/dl (50-199) 05/08/25 06:17
LDL Cholesterol, Calc 64 mg/dl 05/08/25 06:17
VLDL Cholesterol, Calc 26 mg/dl (0-30) 05/08/25 06:17
HDL Cholesterol 48 mg/dl 05/08/25 06:17
Urine Color Yellow 05/08/25 03:33
Urine Clarity Clear (Clear) 05/08/25 03:33
Urine pH 6.5 (5.0-9.0) 05/08/25 03:33
Ur Specific Josephine 1.010 (<1.030) 05/08/25 03:33
Urine Ketones Negative (Negative) 05/08/25 03:33
Urine Occult Blood Negative (Negative) 05/08/25 03:33
Urine Nitrite Negative (Negative) 05/08/25 03:33
Urine Bilirubin Negative (Negative) 05/08/25 03:33
Urine Urobilinogen 1+ (Neg - 1+) 05/08/25 03:33
Ur Leukocyte Esterase Negative (Negative) 05/08/25 03:33
Urine RBC 0-2 /HPF (0-2) 05/08/25 03:33
Urine WBC 0-2 /HPF (0-5) 05/08/25 03:33
Ur Squamous Epith Cells 0-2 /LPF (Few) 05/08/25 03:33
Urine Glucose Negative (Negative) 05/08/25 03:33
Urine Albumin 2+ (Neg - Trace) A 05/08/25 03:33
POC Glucose 88 mg/dl (70-99) 05/07/25 20:05
�
Diagnostic Results:�as per HPI�
�. CT Head 05/07/25: No evidence of acute intracranial abnormality. ASPECT score: 10.
2. CTA Head/Neck 05/07/25: No evidence for hemodynamically significant stenosis of the common carotid arteries, carotid bulbs, or proximal internal carotid arteries bilaterally. No evidence for large vessel occlusion within the middle cerebral
arteries bilaterally. Subtle slightly diminished distal branches in the left anterior frontal lobe when compared to the right, corresponding to the region of delayed perfusion on CT brain perfusion examination.
No significant narrowing involving the vertebral or basilar arteries. No significant narrowing of the posterior cerebral arteries.
3. CT brain perfusion 05/07/25: CBF <30% Volume: 0 mL (estimate of ischemic core). Tmax >6 second Volume: 28 mL (critically hypoperfused tissue). CBF/Tmax Mismatch Volume: 28 mL (ischemic penumbra).
Video swallow test�05/14/2025
There is moderate discogenic degenerative disease at C4/C5 and severe discogenic degenerative disease at C5/C6 with moderate-sized anterior vertebral body endplate osteophytes.
Thin liquid barium by spoon and single sip by cup: No laryngeal penetration or airway aspiration.
Thin liquid barium consecutive sips by cup: Upper laryngeal penetration. No airway aspiration.
Thin liquid barium sip by straw with head in neutral position, chin tuck maneuver and right head turn: Airway aspiration.
[place] consistency barium by spoon and single sip by cup: No laryngeal penetration or airway aspiration.
[place] consistency barium consecutive sips by cup: Upper laryngeal penetration with eventual airway aspiration.
Honey consistency and pudding consistency barium by spoon: No laryngeal penetration or airway aspiration. Significant retention of residue in the vallecula.
Solid barium by cookie: No laryngeal penetration or airway aspiration.
IMPRESSION:
AIRWAY ASPIRATION with thin liquids and nectar consistency barium.
Assessment: 79-year-old male with abrupt onset aphasia due to discontinuation of aspirin and Plavix due to eyelid surgery. Found to have left frontal lobe infarct and old left occipital infarct associated with ADL and ambulatory dysfunction.
�
Plan�
PM&R�PT/OT to increase independence with ADLs, improve balance, coordination, endurance, strength, mobility, community reintegration, decreased burden of care on others and family education.�
�
CVA: Secondary prophylaxis with aspirin and Eliquis due to cardiac history, statin, and blood pressure control (SBP less than 180 and diastolic less than 100 to participate with therapy for ischemic stroke). Continue to monitor neurologic status.�
Dysphagia: speech evaluation, oral care protocol. Upgraded to soft and bite-size with thin liquids after video swallow test. advance diet as tolerated.�
Dysarthria: speech evaluation�
Aphasia: Global-speech evaluation�
HTN: Metoprolol to tartrate 75 mg to twice daily, 5 mg IV Q6 as needed, hydralazine 5 mg IV every 6 as needed,
HLD: Crestor 40 tube, Zetia 10 mg to
Coronary artery disease/CABG/Stents: Aspirin, Eliquis, statin, beta-uriah�
Atrial fibrillation: In sinus rhythm. 1 episode of AF in July registered by his device. Continue anticoagulation and rate control medications.�������������������������������������������
Anemia: Hgb 10.7 Likely multifactorial.� Continue to monitor.�
FEN: Bun 29, Cr. 1.1
Psych: Psychology consult.� Monitor mood, adjust medications as needed.�
Skin: monitor for pressure sores/rashes/lesions.�
Pain: acetaminophen as needed.�
Bowel: Recommend Colace and Senna, PRN bisacodyl.�
Bladder: Time void, PVRs, PRN straight cath.�
GI Prophylaxis: Recommend pantoprazole�with start of Eliquis, aspirin
DVT Prophylaxis: mechanical and Eliquis
Pulmonary: Incentive spirometry�
Safety: Continue to reinforce assistance with all transfers.�
Code Status:� Full code
Dispo�(date/plan/equipment needs): Home with family care.� Social history reviewed.�
�
Functional and Medical Goals:�Modified Independent with ADL�s, ambulation, transfers�
�
Discharge Destination:�Patient with CVA associated with global aphasia ,ADL, and ambulatory dysfunction would benefit from acute inpatient rehabilitation
�
Summary of recommendations:
CVA: Secondary prophylaxis with aspirin and Eliquis due to cardiac history, statin, and blood pressure control (SBP less than 180 and diastolic less than 100 to participate with therapy for ischemic stroke). Continue to monitor neurologic status
Bowel: Recommend Colace and Senna, PRN bisacodyl.�
GI Prophylaxis: Recommend pantoprazole�with start of Eliquis, aspirin
�
Thank you for allowing me to care for your patient. Please contact me with any questions or concerns.
Consultation
-
Date/Time Consultation Performed: 05/14/25
Requesting Provider: Sakina Marcus
Performing Provider: Lola Pittman/Dr. Ny
Reason for Consultation: Stroke

Documented by User: Carson Ny MD 05/15/25 12:18
Consultation - Medical
-
Referring Provider:�Sakina Marcus
Chief Complaint:�Stroke
�
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
after being off his aspirin and plavix since 04/28/2025 for right eyelid repair on 05/01/2025.
CT head and CTA head/neck were negative for acute abnormalities. CT perfusion demonstrated a large 28ml ischemic penumbra and 0ml core infarct. Patient was not a candidate for TNK due to being outside of the time window nor for IAT . He was given
full dose rectal aspirin in the ER.
05/08/25, patient continues to be globally aphasic. Cardiology consulted. Echocardiogram performed which revealed stable severely reduced ejection fraction of 25 to 30% with global hypokinesis. ICD device )MRI compatible) revealed no current atrial
fibrillation, however in July had an episode of paroxysmal atrial fibrillation. Cardiology recommended initiating Eliquis 5mg po bid once safe from a neurologic perspective, continuing Metoprolol, Crestor and deferring initiation of
RAMESH/ARB/Entresto/Aldactone to his OP project production engineer .
Patient failed bedside swallow test. Had Dobhoff tube placement on 05/09/25,. Neurology acceptable with patient receiving both apixaban and aspirin beginning 4 days after stroke onset due to the size and the utilization of both therapies if both are
needed by cardiology for treatment and will follow as needed.
Per his nurse , patient pulled his Dobhoff tube yesterday. Chest x-ray confirmed no Dobhoff tube present. He was taken for video swallow test this morning instead of as was planned.
He was then upgraded to soft and bite sized and thin liquids via single cup sips.
Procedure History:�Cardiac cath, cardiac stent, CABG-2000,s/p Circ PCI 1994, RCA PCI 2006,hooded eyelid repair, endoscopy,
Family History:�Obtained from prior medical record. Mother from rheumatoid disease, father from alcoholism, brother from alcoholism, 1 brother of unclear reasons, 1 brother as a child
�
Social History:�
Functional Level Premorbidly:�Assisted with ADLs by
Functional Level Currently:�Bed mobility�supervision, transfer�mod assist, ambulated 20 feet x 2 with rolling walker and min assist x 2 with second person for safety and
Management, grooming�min assist, toileting�max assist, upper extremity self-care�max assist, lower extremity self-care�min assist,
�
Tobacco:�Former smoker
Alcohol:�Occasional alcohol
Drug use:�Denies�
�
Lives with:�
24-hour assistance available:�Yes
Number of floors:�1
# steps to enter:�2
# steps to second floor: None
Potential First floor set up:�Yes
Driving:�Yes
Occupation:�retired
�
�
Allergies:�
Allergy/AdvReac Type Severity Reaction Status Date / Time
No Known Allergies Allergy Verified 09/22/23 10:53
�
Review of Systems:�Limited by aphasia. Denies any pain or trouble breathing. Indicates he is swallowing okay with his diet. Denies any bowel or bladder concerns. Indicates difficulty with seeing on the right side. Denies any numbness tingling
or weakness.
�
Medications:�
Active Current Visit Medication List
Category Date Time Status
Acetaminophen [Tylenol/Feverall] Med 05/07/25 23:33 Active
650 mg RECTAL Q4HPRN PRN
Acetaminophen [Tylenol] Med 05/09/25 15:02 Active
650 mg TUBE Q4HPRN PRN
Apixaban [Eliquis] Med 05/11/25 08:00 Active
5 mg TUBE BID
Aspirin Chewable [Low Strength Aspirin] Med 05/09/25 16:00 Active
81 mg TUBE DAILY
Erythromycin (Ilotycin) [Erythromycin 0.5% Ophthalmic Med 05/08/25 08:00 Active
Ointment]
1 applic BOTH EYES BID
Ezetimibe [Zetia] Med 05/09/25 15:05 Active
10 mg TUBE DAILY
HydrALAZINE [Apresoline] Med 05/09/25 09:29 Active
5 mg IV Q6HPRN PRN
Metoprolol [Lopressor] Med 05/08/25 17:30 Active
5 mg IV Q6HPRN PRN
Metoprolol [Lopressor] Med 05/09/25 20:00 Active
75 mg TUBE BID
Rosuvastatin Calcium [Crestor] Med 05/09/25 18:00 Active
40 mg TUBE QPM
�
Vitals:�
Temp Pulse Resp BP Pulse Ox
98 F 50 16 119/56 100
05/14/25 15:00 05/14/25 15:00 05/14/25 15:00 05/14/25 15:00 05/14/25 15:00
Height 5 ft 10 in
Actual Weight 89.499 kg
Body Mass Index (BMI) 28.3
�
Physical Exam:�
General Appearance/Observation: Well-developed, well-nourished male in no apparent distress.� Rhythmic head tremor at rest head and right more then left UE..
Pain/Comfort Assessment: Denies�
Mood/Affect: Appropriate�
�
Integumentary/Operative Site:�No lesions noted during course of exam.
�� Pressure Ulcer Evaluation: absent over heels.�
��
�
Eyes: Conjunctiva/Lids: normal���� Pupils: pupils equal round and reactive to light and Accommodation�
Ears/Nose/Throat: oral mucosa moist,� throat clear.������������ Lips/Teeth/Gums: normal�
Neck: Mild bilateral muscle spasm without tenderness�
Cardiovascular: Heart: regular, no murmur�
Pulses: dorsalis pedis 2+ bilaterally�
Respiratory: Respiratory Effort/Chest Expansion: normal������� Auscultation: Clear to auscultation bilaterally�
Gastrointestinal: abdomen not tender, no distension, normal abdominal bowel sounds
Genitourinary: No Swan�
Extremities:�Edema: None�Cyanosis: None�Trophic�changes: None
�
Neurology Exam:
Orientation: Alert. Unable to test orientation with aphasia.
Memory: Limited by aphasia
Repetition: Impaired with aphasia
Comprehension: Intact, nods for yes or no and verbalizes it at times. Can use up or down for yes no but not consistently, is better with repeat questioning.
Two step command: Impaired, takes time and repetition to do one-step commands. Not able to do two-step commands. Can show 2 fingers on the left hand. Has difficulty with [id number] testing.
Naming: Limited by aphasia
Cranial Nerves:
�� CNII:�Pupillary light reflex: Intact����Visual Field: unable to assess aphasia ,
�� CN III, IV, : Extraocular muscles: Intact�
�� CN V:�Facial Sensation�at�Forehead: �Maxilla: ,�Mandible: : unable to assess aphasia
�� CN VII:�Facial movement: right weakness, some drooling on right corner of mouth
�� CN VIII:�Hearing: Normal
�� CN IX/X:�Speech & swallow: Expressive more than receptive aphasia, dysarthria- started to say intermittently yes, no, 'you and I ' once but could not complete sentence Position of Uvula: Midline
�� CN XI:�Shoulder shrug: Symmetric
�� CN XII:�Tongue protrusion: deviated to right
Sensory:
�� Light touch: Intact in bilateral upper and lower extremities- unable to ascertain-aphasia
�� �
Reflexes:
�� Biceps: 0 bilaterally
�� Brachioradialis: 0 bilaterally
�� Triceps: 0 bilaterally
�� Patellar: 0 bilaterally
�� Achilles: 0 bilaterally
�� Babinski: Down going bilaterally
�� Clonus: None
�� K[place]: Negative bilaterally�
Cerebellar: Dysmetria/Ataxia: impairment on right with finger to nose coordination
Musculoskeletal: Motor: (Manual muscle scale 0-5)�
Muscle SA EF WE EE FF FA HF KE DF EHL PF
Right� 5 5 5 5 5 5 4 5 5 5 5
Left 5 5 5 5 5 5 5 5 5 5 5
�
Tone: Normal in all extremities�
Range of Motion: Passively within normal limits in all extremities�
�
Lab Results:
Labs
WBC 10.0 10^3/uL (4.8-10.8) 05/14/25 06:59
RBC 3.18 10^6/uL (4.70-6.10) L 05/14/25 06:59
Hgb 10.7 g/dL (13.0-18.0) L 05/14/25 06:59
Hct 31.9 % (39.0-52.0) L 05/14/25 06:59
MCV 100.3 fL (80.0-94.0) H 05/14/25 06:59
MCH 33.6 pg (27.0-31.0) H 05/14/25 06:59
MCHC 33.5 g/dL (33.0-37.0) 05/14/25 06:59
RDW 12.6 % (11.5-14.5) 05/14/25 06:59
Plt Count 194 10^3/uL (130-400) 05/14/25 06:59
MPV 11.7 fL (7.4-10.4) H 05/14/25 06:59
Abs Immat Gran (auto) 0.0 10^3/uL (0-0.05) 05/14/25 06:59
Absolute Neuts (auto) 6.3 10^3/uL (1.4-6.5) 05/14/25 06:59
Absolute Lymphs (auto) 2.7 10^3/uL (1.2-3.4) 05/14/25 06:59
Absolute Monos (auto) 0.8 10^3/uL (0.1-0.6) H 05/14/25 06:59
Absolute Eos (auto) 0.1 10^3/uL (0-0.7) 05/14/25 06:59
Absolute Basos (auto) 0.0 10^3/uL (0-0.2) 05/14/25 06:59
Immature Gran % 0.2 % (0-0.5) 05/14/25 06:59
Neutrophils % 63.1 % (42.2-75.2) 05/14/25 06:59
Lymphocytes % 27.4 % (20.5-51.1) 05/14/25 06:59
Monocytes % 7.8 % (1.7-9.3) 05/14/25 06:59
Eosinophils % 1.2 % (0-6) 05/14/25 06:59
Basophils % 0.3 % (0-2) 05/14/25 06:59
Nucleated RBC % 0 % (-) 05/14/25 06:59
ESR 12 mm/hour (0-20) 05/07/25 20:31
PT 14.5 Sec (11.4-14.6) 05/07/25 20:31
INR 1.08 05/07/25 20:31
APTT 24.6 Sec (23.4-35.0) 05/07/25 20:31
Sodium 139 mmol/L (135-145) 05/14/25 06:59
Potassium 4.2 mmol/L (3.5-5.1) 05/14/25 06:59
Chloride 106 mmol/L (98-107) 05/14/25 06:59
Carbon Dioxide 25 mmol/L (22-30) 05/14/25 06:59
BUN 29 mg/dl (9-20) H 05/14/25 06:59
Creatinine 1.1 mg/dL (0.7-1.3) 05/14/25 06:59
Estimated Creat Clear 57 ml/min 05/14/25 06:59
eGFR > 60.00 05/14/25 06:59
Glucose 93 mg/dl (70-99) 05/14/25 06:59
Hemoglobin A1c 5.7 % (4.0-5.6) H 05/08/25 02:02
Calcium 9.0 mg/dl (8.4-10.2) 05/14/25 06:59
Magnesium 2.3 mg/dl (1.6-2.3) 05/12/25 07:25
Total Bilirubin 0.5 mg/dl (0.2-1.3) 05/12/25 07:25
AST 36 U/L (17-59) 05/12/25 07:25
ALT 21 U/L (0-50) 05/12/25 07:25
Alkaline Phosphatase 39 U/L (38-126) 05/12/25 07:25
Troponin I 0.124 ng/ml H* 05/09/25 08:53
Total Protein 6.5 g/dl (6.3-8.2) 05/12/25 07:25
Albumin 3.8 g/dl (3.5-5.0) 05/12/25 07:25
Triglycerides 134 mg/dl (10-149) 05/08/25 06:17
Total Cholesterol 138 mg/dl (50-199) 05/08/25 06:17
LDL Cholesterol, Calc 64 mg/dl 05/08/25 06:17
VLDL Cholesterol, Calc 26 mg/dl (0-30) 05/08/25 06:17
HDL Cholesterol 48 mg/dl 05/08/25 06:17
Urine Color Yellow 05/08/25 03:33
Urine Clarity Clear (Clear) 05/08/25 03:33
Urine pH 6.5 (5.0-9.0) 05/08/25 03:33
Ur Specific [place] 1.010 (<1.030) 05/08/25 03:33
Urine Ketones Negative (Negative) 05/08/25 03:33
Urine Occult Blood Negative (Negative) 05/08/25 03:33
Urine Nitrite Negative (Negative) 05/08/25 03:33
Urine Bilirubin Negative (Negative) 05/08/25 03:33
Urine Urobilinogen 1+ (Neg - 1+) 05/08/25 03:33
Ur Leukocyte Esterase Negative (Negative) 05/08/25 03:33
Urine RBC 0-2 /HPF (0-2) 05/08/25 03:33
Urine WBC 0-2 /HPF (0-5) 05/08/25 03:33
Ur Squamous Epith Cells 0-2 /LPF (Few) 05/08/25 03:33
Urine Glucose Negative (Negative) 05/08/25 03:33
Urine Albumin 2+ (Neg - Trace) A 05/08/25 03:33
POC Glucose 88 mg/dl (70-99) 05/07/25 20:05
�
Diagnostic Results:�as per HPI�
�. CT Head 05/07/25: No evidence of acute intracranial abnormality. ASPECT score: 10.
2. CTA Head/Neck 05/07/25: No evidence for hemodynamically significant stenosis of the common carotid arteries, carotid bulbs, or proximal internal carotid arteries bilaterally. No evidence for large vessel occlusion within the middle cerebral
arteries bilaterally. Subtle slightly diminished distal branches in the left anterior frontal lobe when compared to the right, corresponding to the region of delayed perfusion on CT brain perfusion examination.
No significant narrowing involving the vertebral or basilar arteries. No significant narrowing of the posterior cerebral arteries.
3. CT brain perfusion 05/07/25: CBF <30% Volume: 0 mL (estimate of ischemic core). Tmax >6 second Volume: 28 mL (critically hypoperfused tissue). CBF/Tmax Mismatch Volume: 28 mL (ischemic penumbra).
Video swallow test�05/14/2025
There is moderate discogenic degenerative disease at C4/C5 and severe discogenic degenerative disease at C5/C6 with moderate-sized anterior vertebral body endplate osteophytes.
Thin liquid barium by spoon and single sip by cup: No laryngeal penetration or airway aspiration.
Thin liquid barium consecutive sips by cup: Upper laryngeal penetration. No airway aspiration.
Thin liquid barium sip by straw with head in neutral position, chin tuck maneuver and right head turn: Airway aspiration.
[place] consistency barium by spoon and single sip by cup: No laryngeal penetration or airway aspiration.
[place] consistency barium consecutive sips by cup: Upper laryngeal penetration with eventual airway aspiration.
Honey consistency and pudding consistency barium by spoon: No laryngeal penetration or airway aspiration. Significant retention of residue in the vallecula.
Solid barium by cookie: No laryngeal penetration or airway aspiration.
IMPRESSION:
AIRWAY ASPIRATION with thin liquids and nectar consistency barium.
Assessment:
79-year-old right handed M PMH (right-sided field cut and ataxia with large left occipital lobe infarct,HTN, HLD, CAD, ischemic cardiomyopathy, NSTEMI) with abrupt onset aphasia and worsening ADL/ambulation from left frontal lobe infarct and old
left occipital infarct after holding antiplatelet medications per surgery resulting in ADL, speech, swallow, and ambulatory dysfunction.
�
Plan�
PM&R�PT/OT to increase independence with ADLs, improve balance, coordination, endurance, strength, mobility, community reintegration, decreased burden of care on others and family education.�
�
CVA: Secondary prophylaxis with aspirin and Eliquis due to cardiac history, statin, and blood pressure control (SBP less than 180 and diastolic less than 100 to participate with therapy for ischemic stroke). Continue to monitor neurologic status.�
Dysphagia: speech, oral care protocol. Upgraded to soft and bite-size with thin liquids after video swallow test 05/14/25. advance diet as tolerated.�
Dysarthria: speech �
Expressive more than receptive aphasia: speech. Inconsistent with yes no, head shaking, thumbs up and thumbs down options for yes no communication. He prefers to try to shake the head yes and no. Is more accurate with repeat questioning and given
increased time to answer.
Right homonymous hemianopsia: Previously noted. Continue to work on this in therapy.
Right-sided ataxia: PT/OT
HTN: Metoprolol to tartrate 75 mg to twice daily, 5 mg IV Q6 as needed, hydralazine 5 mg IV every 6 as needed,
HLD: Crestor 40 tube, Zetia 10 mg to
Coronary artery disease/CABG/Stents: Aspirin, Eliquis, statin, beta-uriah�
Atrial fibrillation: In sinus rhythm. 1 episode of AF in July registered by his device. Continue anticoagulation and rate control medications.�������������������������������������������
Anemia: Hgb 10.7 Likely multifactorial.� Continue to monitor.�
FEN: Bun 29, Cr. 1.1
Psych: Psychology consult.� Monitor mood, adjust medications as needed.�
Skin: monitor for pressure sores/rashes/lesions.�
Pain: acetaminophen as needed.�
Bowel: Recommend Colace and Senna, PRN bisacodyl.�
Bladder: Time void, PVRs, PRN straight cath.�
GI Prophylaxis: Recommend pantoprazole�with start of Eliquis, aspirin
DVT Prophylaxis: mechanical and Eliquis
Pulmonary: Incentive spirometry�
Safety: Continue to reinforce assistance with all transfers.�
Code Status:� Full code
Dispo�(date/plan/equipment needs): Home with family care.� Social history reviewed.�
Functional and Medical Goals:�Modified Independent with ADL�s, ambulation, transfers�
Discharge Destination:�Patient with CVA associated with global aphasia ,ADL, and ambulatory dysfunction would benefit from acute inpatient rehabilitation
Attending Statement:
I saw and examined the patient today. Reviewed care plan with patient, therapy, nursing, and physician construction project assistant. I agree with the above subjective and physical exam, and plan as documented by RON Pittman with adjustments made as necessary.�
Summary of recommendations:
CVA: Secondary prophylaxis with aspirin and Eliquis due to cardiac history, statin, and blood pressure control (SBP less than 180 and diastolic less than 100 to participate with therapy for ischemic stroke). Continue to monitor neurologic status
Bowel: Recommend Colace and Senna, PRN bisacodyl.�
GI Prophylaxis: Recommend pantoprazole�with start of Eliquis, aspirin
�
Thank you for allowing me to care for your patient. Please contact me with any questions or concerns.
Consultation
-
Performing Provider: Lola Pittman/Dr. Carson Tolentino Why
[2025-05-14] MEDS: ELIQUIS 5 MG PO (19:27)
[2025-05-14 23:19] VITALS: BP 110/56
--- NOTE | 2025-05-15 07:28 | W.DCSUMMARY ---
Addendum entered and electronically signed by Sakina Ward MD 05/15/25 12:12:
Attending�addendum:
I�saw�and�evaluated�the�patient.�I�reviewed�the�resident�s�note�and�agree�with�findings�and�plan�as�documented�in�the�resident�s�note.��
�patient seen and examined at bedside, patient still continues to be aphasic , otherwise denies any chest pain or shortness of breath.
passed swallow eval, cleared for discharge to rehab.
Physical�exam:
GENERAL : Patient is awake, alert, oriented x3
HEENT: Nonicteric sclerae, PERRLA, EOMI. Oropharynx clear. Moist mucous membranes. Conjunctivae appear well perfused.
CHEST: Chest wall is nontender.
HEART: Regular rate and rhythm without murmurs.
LUNGS: Clear to auscultation bilaterally.
ABDOMEN: Soft, positive bowel sounds, nontender, no organomegaly.
RECTAL: Deferred.
SKIN: No rash, no excessive bruising, petechiae, or purpura.
NEUROLOGIC: Still with aphasia.
�
Assessment/plan:
Acute left-sided CVA.
CT brain did not show any acute changes, CT brain perfusion with ischemic penumbra in left frontal lobe and region of the insula
CT angio showed no evidence of significant stenosis of common carotid arteries, carotid bulb or internal carotid arteries
As per neurology, no need to get MRI
Patient upgraded to inpatient.
Consult rehab, patient will need acute rehab.
Aspirin/Eliquis
05/15
Medically cleared for discharge to rehab
Paroxysmal A-fib.
Appreciate cardiology input.
Continue Eliquis/metoprolol
Patient currently in sinus rhythm
Dysphagia secondary to Acute CVA
Patient continued to today.
Started on soft diet.
Hypertension.
Continue home meds.
Hyperlipidemia.
Continue statin
CODE STATUS: Full code
DVT prophylaxis: Eliquis
Diet: Soft
Disposition: Discharge to rehab
�
Total�time�spent�on�today�s�encounter�was�40�minutes�which�included�time�spent�in�counseling�the�patient/family�regarding�diagnosis�and�treatment�plan�as�listed�above,�goals�of�care,�and�symptom�management.�Case�was�discussed�with�nursing�staff,�spec
ialists,�and�care�coordinators/case�management.�All�labs�and�imaging�personally�reviewed�by�me.�Remainder�the�time�spent�in�detailed�review�of�previous�records,�lab�data,�imaging,�and�other�medical�provider�documentation.
Original Note:
Documented by User: Jeffrey Morin MD, Resident 05/15/25 12:09
Discharge Summary
Discharge Data
Date of Admission: 05/09/25
Date of Discharge: 05/15/25
-
Pending Results: No
Hospital Course
Discharging Physician :
Sakina Ward
Disposition :
Acute inpatient rehab
Primary care physician :
sEther Wahl
Principal Discharge diagnosis :
CVA associated with global aphasia
Chronic Discharge diagnosis :
Essential Hypertension
Hyperlipidemia
CAD
Ischemic cardiomyopathy
Hx NSTEMI
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
CABG-2000s/p Circ PCI 1994, RCA PCI 2006
hooded eyelid repair (05/01/25)
Hospital Course :
79-year-old male with PMH as mentioned abovepresented to the ED on 05/07/25 with aphasia after being off his aspirin and plavix since 04/28/2025 for right eyelid repair on 05/01/2025.
CT head and CTA head/neck were negative for acute abnormalities. CT perfusion demonstrated a large ischemic penumbra. Patient was not a candidate for TNK due to being outside of the time window . He was given full dose rectal aspirin in the ER.
05/08/25, patient continued to be globally aphasic. Cardiology was consulted. Echocardiogram performed which revealed stable severely reduced ejection fraction of 25 to 30% with global hypokinesis. ICD device )MRI compatible) revealed no current
atrial fibrillation, however in July had an episode of paroxysmal atrial fibrillation. Cardiology recommended initiating Eliquis 5mg po bid once safe from a neurologic perspective, continuing Metoprolol, Crestor and deferring initiation of
RAMESH/ARB/Entresto/Aldactone to his OP crossing tender
Neurology acceptable with patient receiving both apixaban and aspirin beginning 4 days after stroke onset due to the size and the utilization of both therapies if both are needed by cardiology for treatment. CT head was repeated 4 day post CVA
,given no bleed,he was started on eliquis, aspirin was continued and Plavix discontinued.
Failed his bedside swallow test -Dobhoff tube placed-Repeat video swallow exam 6 days later-upgraded to soft and bite sized and thin liquids via single cup sips.
Patient now stable from medical perspective but needs Acute rehab for physical and occupational rehabilitation
Important imaging findings :
CT Head 05/07/25: No evidence of acute intracranial abnormality
CTA Head/Neck 05/07/25: No evidence for hemodynamically significant stenosis of the common carotid arteries, carotid bulbs, or proximal internal carotid arteries bilaterally. No evidence for large vessel occlusion within the middle cerebral arteries
bilaterally. Subtle slightly diminished distal branches in the left anterior frontal lobe when compared to the right, corresponding to the region of delayed perfusion on CT brain perfusion examination.No significant narrowing involving the vertebral
or basilar arteries. No significant narrowing of the posterior cerebral arteries.
CT brain perfusion 05/07/25: CBF <30% Volume: 0 mL (estimate of ischemic core). Tmax >6 second Volume: 28 mL (critically hypoperfused tissue). CBF/Tmax Mismatch Volume: 28 mL (ischemic penumbra).
Video swallow test�05/14/2025
There is moderate discogenic degenerative disease at C4/C5 and severe discogenic degenerative disease at C5/C6 with moderate-sized anterior vertebral body endplate osteophytes.
Thin liquid barium by spoon and single sip by cup: No laryngeal penetration or airway aspiration.
Thin liquid barium consecutive sips by cup: Upper laryngeal penetration. No airway aspiration.
Thin liquid barium sip by straw with head in neutral position, chin tuck maneuver and right head turn: Airway aspiration.
[place] consistency barium by spoon and single sip by cup: No laryngeal penetration or airway aspiration.
[place] consistency barium consecutive sips by cup: Upper laryngeal penetration with eventual airway aspiration.
[place] consistency and pudding consistency barium by spoon: No laryngeal penetration or airway aspiration. Significant retention of residue in the vallecula.
Solid barium by cookie: No laryngeal penetration or airway aspiration.
IMPRESSION:
AIRWAY ASPIRATION with thin liquids and nectar consistency barium.
Discharge Plan
-
Patient Disposition: Acute Rehab Facility
Discharge Diagnosis/Procedures: Acute left sided CVA
Dysphagia secondary to CVA
Condition: Fair
Diet: Other diet
Additional Diets: Soft and bite sized and thin liquids via single cup sips with partial supervision
Meds crushed in puree
Activity: As tolerated
Driving Restrictions: Not until seen by your Dr
Bathing Restrictions: OK to Shower
Referrals:
Yash David, [Non-Admitting Privileges]
Maryuri Santana MD [Family Provider, Internal Medicine]
Prescriptions:
New
Eliquis 5 mg Tablet
5 mg PO BID 30 Days Qty: 60 0RF
Continued
aspirin 81 MG tablet,delayed release (DR/EC)
81 mg PO DAILY
sertraline 50 MG tablet
50 mg PO QPM
metoprolol succinate 50 MG tablet extended release 24 hr
75 mg PO BID
rosuvastatin [Crestor] 40 MG tablet
40 mg PO QPM
multivitamin with folic acid [Tab-A-Tra] 1 TABLET tablet
1 tab PO DAILY
ranolazine 1,000 MG tablet extended release 12 hr
1,000 mg PO BID Qty: 60 0RF
Rx Instructions:
Increase Ranexa (ranolazine) to 1000 mg (two 500 mg capsules) twice a day
sacubitril-valsartan [Entresto] 49-51 mg Tablet
1 tab PO BID
pantoprazole [Protonix] 40 mg Tablet,Delayed Release (Dr/Ec)
40 mg PO DAILY
erythromycin 5 mg/gram (0.5 %) Ointment
1 applic BOTH EYES BID
Rx Instructions:
FOR 10 DAYS AFTER EYE LID SURGERY
ezetimibe [Zetia] 10 mg Tablet
10 mg PO DAILY
omega-3 acid ethyl esters 1 gram capsule
2 g PO BID
fenofibrate nanocrystallized [Tricor] 145 mg Tablet
145 mg PO DAILY
Held
cetirizine 10 MG tablet
10 mg PO DAILY
Hold Instructions: after seen by your PCP
Discontinued
clopidogrel 75 MG tablet
75 mg PO DAILY
Discharge Orders:
Discharge Patient (As Directed); Ordered 05/15/25
Ordered By: Sakina Ward
Discharge Date and Time
Print Language: GUINEAN

Documented by User: Sakina Ward MD 05/15/25 12:11
Discharge Summary
Discharge Data
Date of Admission: 05/09/25
Date of Discharge: 05/15/25
Discharge Plan
-
Patient Disposition: Acute Rehab Facility
Discharge Diagnosis/Procedures: Acute left sided CVA
Dysphagia secondary to CVA
Condition: Fair
Diet: Other diet
Additional Diets: Soft and bite sized and thin liquids via single cup sips with partial supervision
Meds crushed in puree
Activity: As tolerated
Driving Restrictions: Not until seen by your Dr
Bathing Restrictions: OK to Shower
Referrals:
Yash David, [Non-Admitting Privileges]
Maryuri Santana MD [Family Provider, Internal Medicine]
Prescriptions:
New
Eliquis 5 mg Tablet
5 mg PO BID 30 Days Qty: 60 0RF
Continued
aspirin 81 MG tablet,delayed release (DR/EC)
81 mg PO DAILY
sertraline 50 MG tablet
50 mg PO QPM
metoprolol succinate 50 MG tablet extended release 24 hr
75 mg PO BID
rosuvastatin [Crestor] 40 MG tablet
40 mg PO QPM
multivitamin with folic acid [Tab-A-Tra] 1 TABLET tablet
1 tab PO DAILY
ranolazine 1,000 MG tablet extended release 12 hr
1,000 mg PO BID Qty: 60 0RF
Rx Instructions:
Increase Ranexa (ranolazine) to 1000 mg (two 500 mg capsules) twice a day
sacubitril-valsartan [Entresto] 49-51 mg Tablet
1 tab PO BID
pantoprazole [Protonix] 40 mg Tablet,Delayed Release (Dr/Ec)
40 mg PO DAILY
erythromycin 5 mg/gram (0.5 %) Ointment
1 applic BOTH EYES BID
Rx Instructions:
FOR 10 DAYS AFTER EYE LID SURGERY
ezetimibe [Zetia] 10 mg Tablet
10 mg PO DAILY
omega-3 acid ethyl esters 1 gram capsule
2 g PO BID
fenofibrate nanocrystallized [Tricor] 145 mg Tablet
145 mg PO DAILY
Held
cetirizine 10 MG tablet
10 mg PO DAILY
Hold Instructions: after seen by your PCP
Discontinued
clopidogrel 75 MG tablet
75 mg PO DAILY
Discharge Orders:
Discharge Patient (As Directed); Ordered 05/15/25
Ordered By: Sakina Ward
Discharge Date and Time
Print Language: GUINEAN
[2025-05-15 07:45] VITALS: BP 124/55
[2025-05-15 08:45] LABS: Hematocrit 31.2 % (39.0-52.0); Hemoglobin 10.5 g/dL (13.0-18.0); Mean Corp Hgb Conc. 33.7 g/dL (33.0-37.0); Mean Corpuscular Volume 97.5 fL (80.0-94.0); Nucleated Red Blood Cells % 0 % (-); Platelet Count 193 10^3/uL (130-400); Red Cell Dist. Width 12.3 % (11.5-14.5)
--- NOTE | 2025-05-15 08:55 | W.PN.HOSP.TC ---
Addendum entered and electronically signed by Sakina Ward MD 05/15/25 12:07:
Attending�addendum:
I�saw�and�evaluated�the�patient.�I�reviewed�the�resident�s�note�and�agree�with�findings�and�plan�as�documented�in�the�resident�s�note.��
�patient seen and examined at bedside, patient still continues to be aphasic , otherwise denies any chest pain or shortness of breath.
passed swallow eval, cleared for discharge to rehab.
Physical�exam:
GENERAL : Patient is awake, alert, oriented x3
HEENT: Nonicteric sclerae, PERRLA, EOMI. Oropharynx clear. Moist mucous membranes. Conjunctivae appear well perfused.
CHEST: Chest wall is nontender.
HEART: Regular rate and rhythm without murmurs.
LUNGS: Clear to auscultation bilaterally.
ABDOMEN: Soft, positive bowel sounds, nontender, no organomegaly.
RECTAL: Deferred.
SKIN: No rash, no excessive bruising, petechiae, or purpura.
NEUROLOGIC: Still with aphasia.
�
Assessment/plan:
Acute left-sided CVA.
CT brain did not show any acute changes, CT brain perfusion with ischemic penumbra in left frontal lobe and region of the insula
CT angio showed no evidence of significant stenosis of common carotid arteries, carotid bulb or internal carotid arteries
As per neurology, no need to get MRI
Patient upgraded to inpatient.
Consult rehab, patient will need acute rehab.
Aspirin/Eliquis
05/15
Medically cleared for discharge to rehab
Paroxysmal A-fib.
Appreciate cardiology input.
Continue Eliquis/metoprolol
Patient currently in sinus rhythm
Dysphagia secondary to Acute CVA
Patient continued to today.
Started on soft diet.
Hypertension.
Continue home meds.
Hyperlipidemia.
Continue statin
CODE STATUS: Full code
DVT prophylaxis: Eliquis
Diet: Soft
Disposition: Discharge to rehab
�
Total�time�spent�on�today�s�encounter�was�55�minutes�which�included�time�spent�in�counseling�the�patient/family�regarding�diagnosis�and�treatment�plan�as�listed�above,�goals�of�care,�and�symptom�management.�Case�was�discussed�with�nursing�staff,�spec
ialists,�and�care�coordinators/case�management.�All�labs�and�imaging�personally�reviewed�by�me.�Remainder�the�time�spent�in�detailed�review�of�previous�records,�lab�data,�imaging,�and�other�medical�provider�documentation.
Original Note:
Today's Communication/Plan
-
Acute Rehab
Assessment / Plan
Assessment / Plan
Patient is a 79-year-old male with past medical history significant for hypertension hyperlipidemia coronary artery disease, ischemic cardiomyopathy who presented to the [facility] ED for evaluation of aphasia and right-sided neglect. Patient was found
by his , having difficulty in uttering words
History of large stroke about 2 years ago
In the ED systolic blood pressure was in 90s, blood work was unremarkable.
CT brain did not show any acute changes, CT brain perfusion with ischemic penumbra in left frontal lobe and region of the insula
CT angio showed no evidence of significant stenosis of common carotid arteries, carotid bulb or internal carotid arteries
Patient with severe aphasia and unable to communicate appropriately but follows commands.
#Acute CVA with new onset Global aphasia likely secondary to left-sided CVA
Most likely secondary to discontinuation of dual antiplatelet therapy(04/28-05/01) for eyelid surgery
Neurology and cardiology recommendations appreciated-Aspirin and Eliquis lifelong, optimize blood pressure and cholesterol levels
Echo-(05/08/25) Stable severely reduced ejection fraction of 25 to 30% with global hypokinesis no vegetations, device check with brief run of A-fib, now remains in sinus rhythm, no obstructive carotid disease, recommend initiating Eliquis when
tolerating oral meds,
HbA1c 5.7,LDL 64, triglycerides 134, total cholesterol 138
PT/OT- Recommend acute rehab
#Dysphagia secondary to acute CVA
Swallowing study done-Soft and bite sized food,Oral meds crushed in puree-Oral care aspiration precautions
# Paroxysmal Atrial fibrillation
Stable-Rate well controlled,currently in sinus rhythm
Continue Metoprolol and Eliquis
#hypertension
-Continue medications as able
-Blood pressure on lower side
#hyperlipidemia
-Continue medications as able
- Lipid panel looks good
#CAD
-Resume medications as able
#ischemic cardiomyopathy
#Hyperkalemia
Resolved, Entresto on hold
Continue to monitor
PT OT recommended acute rehab-physiatry consult in a.m.
Code status: full code
DVT prophylaxis: SCDs
Diet-Soft and bite sized food,Oral meds crushed in puree-Oral care aspiration precautions
Physiatry consult pending for acute rehab-Medically cleared for discharge
Anticipated Discharge: Within 24 hours
Subjective/Interval History
-
Date of Service: May 15, 2025
Patient seen and examined at bedside
Tolerating soft and bite sized diet
Aphasic
Objective Data
-
Labs:
Laboratory Results
05/15/25
07:31
WBC 10.2
Hgb 10.5 L
Hct 31.2 L
Plt Count 193
Sodium Pending
Potassium Pending
Chloride Pending
Carbon Dioxide Pending
BUN Pending
Creatinine Pending
Glucose Pending
Calcium Pending
Vital Signs:
Vital Signs
Temp Pulse Resp BP Pulse Ox
98.1 F 47 16 124/55 98
05/15/25 07:45 05/15/25 07:45 05/15/25 07:45 05/15/25 07:45 05/15/25 07:45
I&O
05/14/25 05/15/25 05/16/25
06:59 06:59 06:59
Output Total 500 / 500
Balance -500 / -500
Review of Systems
-
All other systems: Reviewed and negative
Physical Exam
-
General: Well Developed, Well Nourished and No Apparent Distress
HEENT: Normocephalic, Moist Mucous Membranes, Anicteric and [place] Conjunctivae
Respiratory: Clear to Auscultation; Negative Wheezes, Rales or Rhonchi
Cardiac: Regular Rhythm, S1/S2 and Bradycardic
GI: Soft, Nontender and Normal Bowel Sounds
Musculoskeletal: No Clubbing, No Cyanosis and No Edema
Neuro: Awake, Nonfocal/Grossly Intact and Slurred Speech (Global aphasia am)
Psych: Calm
[2025-05-15 09:08] LABS: Blood Urea Nitrogen 27 mg/dl (9-20); Calcium 8.8 mg/dl (8.4-10.2); Carbon Dioxide 26 mmol/L (22-30); Chloride 106 mmol/L (98-107); Estimated Creatinine Clearance 63 ml/min; Glucose 103 mg/dl (70-99); Potassium 4.0 mmol/L (3.5-5.1); Sodium 138 mmol/L (135-145); eGFR > 60.00
[2025-05-15] MEDS: ELIQUIS 5 MG PO (09:32)
[2025-05-15] MEDS: LOW STRENGTH ASPIRIN 81 MG PO (09:33)
[2025-05-15] MEDS: ZETIA 10 MG PO (09:33)
[2025-05-15] MEDS: ERYTHROMYCIN 0.5% OPHTHALMIC OINTMENT BOTH EYES (09:35)
--- NOTE | 2025-05-15 10:54 | CM ---
Confirmed w/ Annie/Chris that a bed is available for patient today after noon
Updated patient bedside. IMM verbally reviewed, copy provided, copy on chart
Unable to leave message w/ spouse due to mailbox being full
Updated hospitalist, will plan to d/c
Chris SAUNDERS
Report: [phone]

Plan: [facility] today
[2025-05-15 12:28] VITALS: BMI 26.1
[2025-05-15 15:45] VITALS: BP 120/58
== END 2025-05-15 16:30 | DRG 65 ==
LOC: 4 EAST ACU 15:12
PROVIDERS: Hospitalist; Nurse Practitioner Family; ADMITTING PHYSICIAN Internal Medicine; ATTENDING PHYSICIAN General Practice; CONSULT PHYSICIAN Physical Medicine & Rehabilitation; CONSULT PHYSICIAN Psychiatry & Neurology Neurology; EMERGENCY PHYSICIAN Emergency Medicine; FAMILY PHYSICIAN Internal Medicine; OTHER PHYSICIAN Internal Medicine Cardiovascular Disease
DX: I63.512 Cerebral infarction due to unspecified occlusion or stenosis of left middle cerebral artery (principal); I50.32 Chronic diastolic (congestive) heart failure; R41.4 Neurologic neglect syndrome; I48.0 Paroxysmal atrial fibrillation; Z79.01 Long term (current) use of anticoagulants; R13.10 Dysphagia, unspecified; I11.0 Hypertensive heart disease with heart failure; I25.10 Atherosclerotic heart disease of native coronary artery without angina pectoris; I25.5 Ischemic cardiomyopathy; I25.2 Old myocardial infarction; Z95.1 Presence of aortocoronary bypass graft; Z87.891 Personal history of nicotine dependence; Z79.82 Long term (current) use of aspirin; Z79.02 Long term (current) use of antithrombotics/antiplatelets; Z79.899 Other long term (current) drug therapy; Z95.5 Presence of coronary angioplasty implant and graft; R29.717 NIHSS score 17; D64.9 Anemia, unspecified; E78.00 Pure hypercholesterolemia, unspecified
CPT/HCPCS: 0042T; 70450; 70496; 70498; 71045; 74230; 80048; 80053; 80061; 81003; 81015; 82962; 83036; 83735; 84484; 85025; 85610; 85652; 85730; 92507; 92523; 92526; 92610; 92611; 93005; 93306; 96361; 97112; 97116; 97129; 97167; 97530; 97535; 99291; Q9950; Q9967